=== PATIENT | female | born 1955 | race Caucasian/White ===

== ENCOUNTER 2024-11-16 04:03 | Day surgery (SDC) | payer MEDICARE, OTHER, SELFPAY ==
--- OUTSIDE RECORDS SUMMARY | 2008-05-27 05:29 | XMS_ITS | Continuity of Care Document ---
Author Organization [facility] Address [address] [address] [place] [address] Phone Care Team Providers Care Shank Carrier Name Role Phone Francisco Hernandez MD Unavailable Unavailable Allergies, Adverse Reactions, Alerts Substance Reaction Status Criticality No Known allergies Medications Medication Instructions Dosage Effective Dates (start - stop) Status Comments Carafate 1 gram Tab four times a day - Active Protonix 40 mg Tab One tablet by mouth twice daily - Active METFORMIN HCL (unknown strength) Use as directed Not Available - Active Procedures Procedure Date Ugi Endo; Dx W/wo Collec Specm 08 Advance Directives Directive Yes / No Effective Date File Name No Information Encounters Encounter Description Practice Location Reason(s) For Visit Diagnoses Date Provider Providers Copied on Encounter [facility], [address] [address], [place], [place], [id number], [place] tel:[phone] [facility] Gastric/ant ral Ulcer UnspecPost- op Aftercare NecGastric/ antral Ulcer UnspecPost- op Aftercare Nec David Singh. [address] [facility], [facility] [address], [place], [place], [id number], [place]. tel:[phone] Referring Provider: Khadar Bolaños MD D, [address] [place] [address], [address]. tel:[phone] Family History Family Member Type Diagnosis Age At Onset No Information Payers Payer name Insurance type Covered republican ID Authoriza tion(s) No Information Social History Type Description Quantity Date Captured Comments Sex Female Smoking Status No Information Chief Complaint And Reason For Visit No Information Reason For Referral Reason For Referral No Information History Of Present Illness Encounter Date Complaint History Of Prese nt Illness No Information Functional Status Date Functional Assessmen t No Information Instructions Date Instruction Additional Infor mation No Information Assessments Type Assessment Date No Information Patient Care Teams Name Effective Dates (start - stop) Status Members No Information
--- OUTSIDE RECORDS SUMMARY | 2008-05-27 05:29 | XMS_ITS | Continuity of Care Document ---
Author Organization [facility] Address [address] [address] [place] [address] Phone Care Team Providers Care Brake Linings Coater Name Role Phone Francisco Hernandez MD Unavailable [...] Diagnoses Date Provider Providers Copied on Encounter [facility], [address] [address], [place], [place], [id number], [place] tel:[phone] [facility] Gastric/ant ral Ulcer UnspecPost- op Aftercare NecGastric/ antral Ulcer UnspecPost- op Aftercare Nec David Singh. [address] [facility], [facility] [address], [place], [place], [id number], [place]. tel:[phone] Referring Provider: Khadar Bolaños MD D, [address] [place] [address], [address]. tel:[phone] Family History Family Member Type Diagnosis Age At Onset No Information Payers Payer name Insurance type Covered constitution party ID Authoriza tion(s) No Information Social History [...]
[2024-11-16] VITALS (23 sets, daily range): BP systolic 105–155; BP diastolic 60–78; PULSE 59–81; RESP 12–18; TEMP 36.3–37.2; O2SAT 90–99; BMI 38.6
--- OUTSIDE RECORDS SUMMARY | 2024-11-16 04:06 | XMS_ITS | Clinical Summary ---
Author Organization [facility] Address [address] [place] [id number] Care Team Providers Care Sales And Marketing Associate Name Role Phone Khadar Sandoval Paula Kwan Primary Care Provider [phone] Allergies Active Allergy Reactions Criticality Noted Date Comments Nsaids (Non-Steroidal Anti-I nflammatory Drug) GI Bleeding 05/20/2014 Medications cholecalciferol (VITAMIN D) 1,000 unit capsule Take 1 capsule by mouth once daily. 0 014 Active nystatin powder (MYCOSTATIN) powder As needed 017 Active cyanocobalamin (VITAMIN B-12) 1,000 mcg tablet Take 1 tablet by mouth once daily. 90 tablet 3 019 Active blood-glucose meterIndications:T ype 2 diabetes mellitus without complication, with long-term current use of insulin (HC) Free Style lite meter testing daily Dispense meter, test strips, lancets covered by pt ins. 250.00 NIDDM type II - Test 4 time/day 1 Device 020 Active ACCU-CHEK GUIDE ME GLUCOSE MTR 4 times daily. 020 Active albuterol HFA (PRO-AIR) 90 mcg/actuation inhalerIndications :SOB (shortness of breath) Inhale 1-2 Puffs by mouth every 4 hours if needed. 3 Each 2 020 Active pen needle, diabetic (BD INSULIN PEN NEEDLE UF) 31 gauge x 10/18Indications:T ype 2 diabetes mellitus with retinopathy, with long-term current use of insulin, macular edema presence unspecified, unspecified laterality, unspecified retinopathy severity (HC) Check blood sugars 3-4 times daily and record readings 100 Each 11 Active nitroglycerin (NITROSTAT) 0.4 mg sublingual tabletIndications: CAD in [place] artery Place 1 Tablet (0.4 mg) under the tongue each time if needed for Chest Pain. 25 Tablet 3 05/05/20 21 4:51 PM LOAN PROCESSING SUPERVISOR Active Additional Information Patient taking differently:0.4 mg Sublingual EACH TIME PRN, Chest Pain,as needed, Reported on 10/18/2024 aspirin chewable 81 mg chewable tabletIndications: CAD in [place] artery Chew 1 Tablet (81 mg) by mouth once daily with a meal. 90 Tablet 3 05/05/20 21 4:51 PM LOAN PROCESSING SUPERVISOR 021 Active blood sugar diagnostic (Accu-Chek Guide test strips) stripIndications:d iabetes mellitus Dispense item covered by pt ins. E11.9 NIDDM type II - Test 3 times/day, Reason: insulin use 100 Each 12 022 Active blood sugar diagnostic (Blood Glucose Test) stripIndications:T ype 2 diabetes mellitus with retinopathy, with long-term current use of insulin, macular edema presence unspecified, unspecified laterality, unspecified retinopathy severity (HC) Test 4 times per day. Dx date: 05/2014 Duration of use: 99 months, Dx Code: E11.319 200 Each 2 022 Active nebulizer accessories kitIndications:PEDIATRIC NURSE PRACTITIONER D with chronic bronchitis (HC) For home use. Length of need: 1 year 1 Kit 024 Active citalopram (CELEXA) 20 mg tabletIndications: Moderate major depression (HC) Take 1 Tablet (20 mg) by mouth once daily. 90 Tablet 3 025 Active valsartan (DIOVAN) 40 mg tabletIndications: HTN (hypertension) Take 1 Tablet (40 mg) by mouth once daily. 90 Tablet 3 025 Active clopidogreL 75 mg tabletIndications: CAD in [place] artery Take 1 Tablet (75 mg) by mouth once daily. NO further refills until seen by Cardiology. Call [phone] to schedule 90 Tablet 025 Active semaglutide (Ozempic) 2 mg/dose (8 mg/3 mL) subcutaneous penIndications:Typ e 2 diabetes mellitus with both 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 nonproliferative retinopathy and macular edema, with long-term current use of insulin (HC) Inject 2 mg subcutaneous once weekly. 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 360 Tablet 1 Active rosuvastatin 40 mg tabletIndications: Atherosclerotic heart disease of [place] coronary artery with other forms of angina pectoris Take 1 Tablet (40 mg) by mouth at bedtime. 90 Tablet Active insulin glargine (U-100) (Lantus Solostar U-100 Insulin) 100 unit/mL (3 mL) penIndications:Typ e 2 diabetes mellitus with both 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 nonproliferative retinopathy and macular edema, with long-term current use of insulin (HC) INJECT 23 UNITS UNDER THE SKIN TWICE DAILY (8AM AND 8PM) 30 mL 10 Active fluticasone propion-salmeteroL (Advair Diskus) 500-50 mcg/Dose diskus inhalerIndications :COPD mixed type (HC) Inhale 1 Puff by mouth two times daily. 60 Each 5 Active donepeziL 5 mg tabletIndications: Memory problem Take 1 Tablet (5 mg) by mouth at bedtime. 90 Tablet 3 025 Active albuterol 0.083% (2.5 mg/3 mL) neb solutionIndication s:COPD mixed type (HC) Inhale 3 mL (2.5 mg) via a nebulizer every 4 hours if needed for Shortness Of Breath, Wheezing or Cough. 99 mL 1 025 Active metoprolol succinate 25 mg Sustained-Release tabletIndications: Coronary artery disease, unspecified vessel or lesion type, unspecified whether angina present, unspecified whether [place] or transplanted heart TAKE ONE TABLET BY MOUTH ONCE DAILY 90 Tablet 025 Active albuterol 0.083% (2.5 mg/3 mL) neb solutionIndication s:COPD with chronic bronchitis (HC),Persistent cough for 3 weeks or longer Inhale 3 mL (2.5 mg) via a nebulizer every 4 hours if needed for Shortness Of Breath, Wheezing or Cough. 99 mL 024 2024 Discontinued(R eorder (E-cancel not sent)) fluticasone propion-salmeteroL (Advair Diskus) 500-50 mcg/Dose diskus inhalerIndications :COPD mixed type (HC) Inhale 1 Puff by mouth two times daily. 60 Each 5 024 2024 Discontinued(R eorder (E-cancel not sent)) donepeziL (ARICEPT) 5 mg tabletIndications: Memory problem Take 1 Tablet (5 mg) by mouth at bedtime. 90 Tablet 3 024 2024 Discontinued(R eorder (E-cancel not sent)) rosuvastatin (CRESTOR) 40 mg tabletIndications: CAD, multiple vessel Take 1 Tablet (40 mg) by mouth at bedtime. 90 Tablet 3 024 2024 Discontinued(R eorder (E-cancel not sent)) insulin glargine, U-100, (Lantus Solostar U-100 Insulin) 100 unit/mL (3 mL) penIndications:Typ e 2 diabetes mellitus with retinopathy, with long-term current use of insulin, macular edema presence unspecified, unspecified laterality, unspecified retinopathy severity (HC) INJECT 23 UNITS UNDER THE SKIN TWICE DAILY (8AM AND 8PM) 30 mL 10 024 2024 Discontinued(R eorder (E-cancel not sent)) semaglutide (OZEMPIC) 1 mg/dose (4 mg/3 mL) subcutaneous penIndications:Typ e 2 diabetes mellitus with retinopathy, with long-term current use of insulin, macular edema presence unspecified, unspecified laterality, unspecified retinopathy severity (HC) Inject 1 mg subcutaneous once weekly. 9 mL 1 025 2024 Discontinued(* Medication adjustment) metoprolol succinate (TOPROL XL) 25 mg Sustained-Release tabletIndications: Coronary artery disease, unspecified vessel or lesion type, unspecified whether angina present, unspecified whether [place] or transplanted heart Take 1 Tablet (25 mg) by mouth once daily. 90 Tablet 025 2024 Discontinued metFORMIN (GLUCOPHAGE XR) 500 mg Extended-Release tabletIndications: Type 2 diabetes mellitus with retinopathy, with long-term current use of insulin, macular edema presence unspecified, unspecified laterality, unspecified retinopathy severity (HC) TAKE TWO TABLETS BY MOUTH TWICE A DAY WITH MEALS 240 Tablet 025 2024 Discontinued(R eorder (E-cancel not sent)) Active Problems Problem Noted Date Diagnosed Date COPD mixed type 07/15/2024 Non-proliferative diabetic retinopathy, both eye s 06/12/2024 06/03/2024 Colon polyp 11/14/2023 Overview (11/14/2023): Colonoscopy 11/2023 traditional SSA, long colon recommend CT colon to check the cecum then repeat colonoscopy in 3 years with a colowrap and propofol at [facility] History of Margot-en-Y gastric bypass 10/10/2023 Class 2 severe obesity due t o excess calories with serious comorbidity and body mass index (BMI) of 39.0 to 39.9 in adult 07/18/2023 Assessment & Plan (07/18/2023 10:23 AM LOAN PROCESSING SUPERVISOR): Chart update only. PRIMITIVO Hartmann .................... 07/18/2023 10:23 AM Stage 3a chronic kidney disease 07/18/2023 Assessment & Plan (07/18/2023 10:23 AM LOAN PROCESSING SUPERVISOR): Chart update only. PRIMITIVO Hartmann .................... 07/18/2023 10:23 AM Atherosclerotic heart diseas e of [place] coronary artery with other forms of angina pectoris 08/18/2021 Assessment & Plan (07/18/2023 10:23 AM LOAN PROCESSING SUPERVISOR): Chart update only. PRIMITIVO Hartmann .................... 07/18/2023 10:23 AM S/P drug eluting coronary stent placement 2020 Overview (05/31/2021): Dual antiplatelets through 05/10/22 CAD, multiple vessel 05/05/2021 Overview (05/05/2021): 05/05/21: -95% left circumflex lesion s/p PCI with 3.0 x 24 mm Synergy MAIRA -90% mid RCA lesion s/p PCI with 4.0 x 23 mm Xience Skypoint MAIRA -95% 1st right ANDRE lesion s/p PCI with 2.5 x 28 mm Xience Skypoint MAIRA Type 2 diabetes mellitus wit h retinopathy, with long-term current use of insulin 10/17/2019 Assessment & Plan (07/18/2023 10:23 AM LOAN PROCESSING SUPERVISOR): Chart update only. PRIMITIVO Hartmann .................... 07/18/2023 10:23 AM Forgetfulness 10/17/2019 Chronic cough 10/09/2018 Carpal tunnel syndrome 04/14/2017 Overview (04/02/2018): Overview: Added automatically from request for surgery [id number] Major depressive disorder, single episode, moder ate 04/14/2017 Personal history of other specified conditions 1 06/14/2016 Overview (04/02/2018): Overview: Overview: Gastric Margot-en-Y surgery in 2002 Polycystic ovaries 04/14/2017 Allergic rhinitis due to pollen 12/23/2014 Hyperlipidemia 05/20/2014 Vitamin D deficiency 05/20/2014 Obesity 05/20/2014 Osteoarthrosis, unspecified whether generalized or localized, lower leg 08/21/2007 Dyslipidemia 08/21/2007 Overview (05/05/2021): Simvastatin changed to rosuvastatin 10 mg QD at visit with Dr. Schumacher on 04/22/2021. Recheck fasting lipid profile in 1-2 months. Goal LDL < 70. Unspecified essential hypertension 08/21/2007 Unspecified sleep apnea 08/21/2007 Overview (08/21/2007): Not using CPAP Osteoarthritis 08/21/2007 Rheumatoid arthritis Overview (05/20/2014): Dx by a ''specialist' at [facility] DMARD's: MTX; weaned off when no flares Assessment & Plan (07/18/2023 10:23 AM LOAN PROCESSING SUPERVISOR): Chart update only. PRIMITIVO Hartmann .................... 07/18/2023 10:23 AM PCOD (polycystic ovarian disease) History of morbid obesity Overview (05/20/2014): Gastric Margot-en-Y surgery in 2002 Moderate major depression Resolved Problems Problem Noted Date Diagnosed Date Resolved Date Morbid obesity 02/01/2021 08/26/2021 Type 2 diabetes mellitus without complication 09/05/19 13 08/26/2021 Overview (04/02/2018): Overview: Diabetes mellitus type II Overview: Bilateral foot exam: 05/20/14. Metformin, Levemir, Victoza Eye exam within last 12 months: Yes 12/22/2014 Eye animal care taker: [facility] 12/05/14 labs drawn via [facility]:([facility] orders drawn at outside facility) Total cholesterol 156 Trig 190 hdl 47 ldl 71 HgbA1C 7.3 AST 16 ALT 16 Type II or unspecified type diabetes mellitus without mention of complication, not stated as uncontrolled 08/21/2007 08/26/2021 Overview (12/23/2014): Bilateral foot exam: 05/20/14. Metformin, Levemir, Victoza Eye exam within last 12 months: Yes 12/22/2014 Eye animal care taker: [facility] 12/05/14 labs drawn via [facility]:([facility] orders drawn at outside facility) Total cholesterol 156 Trig 190 hdl 47 ldl 71 HgbA1C 7.3 AST 16 ALT 16 Encounters Date Type Department Care Team Description 11/05/2024 Telephone [facility] [address] [place] [phone] Becky Schumacher MD Appointment (Spoke to patient to reschedule 12/30 [facility] appt due to template change. Pt will have her courtesy car driver call back to reschedule./ Per Bambi W: she is fine to see zuleima or next avaible with kk /) 10/31/2024 Refill [facility] [address] [place] [address] Becky Schumacher MD Refill Request (Metoprolol Succinate) 10/30/2024 Refill [facility] [address] [place] [address] Becky Schumacher MD Refill Request (Metoprolol Succinate) 10/18/2024 2:00 PM CDT Office Visit [facility] [address] [place] [address] Paula Jamil PA Diabetes; Immunization/Injectio n 10/18/2024 Travel 10/12/2024 Refill [facility] [address] [place] [address] Paula Jamil PA Refill Request (Metformin) 09/17/2024 Telephone [facility] [address] [place] [address] Becky Schumacher MD Appointment 09/14/2024 Refill [facility] [address] [place] [phone] Becky Schumacher MD Refill Request (Clopidogrel) from Last 3 Months Immunizations Immunization Administration Dates Next Due COVID-19 VACCINE SPIKEVAX (M ODERNA 50MCG/0.5ML) 12YO+ PFS 10/18/2024,02/19/2024,05/19/2023 COVID-19 vaccine (Moderna 100mcg/0.5mL) PF, MDV 09/03/2020,08/06/2020 COVID-19 vaccine (RoutehappyBio NTech 30mcg/0.3mL) 12YO+ BIVALENT PF, MDV 02/21/2022 COVID-19 vaccine (eWise NTech 30mcg/0.3mL) 12YO+ DEBBY-SUCROSE PF, MDV 10/27/2021 COVID-19 vaccine (RoutehappyBio NTech 30mcg/0.3mL) PF, MDV 05/18/2021 Influenza Virus, Unspecified 03/07/2017 Influenza, IIV4 03/21/2019,03/02/2018 Influenza, Inactivated AIIV4 (Age 65+ Years) Preserv Free 05/19/2023,02/21/2022,03/17/2021,2020 Influenza, Inactivated IIV3 (Age 65+ Years) Preserv Free 02/19/2024 Pneumococcal Conj 20-valent (Prevnar 20) 10/27/2021 Pneumococcal Poly,23-Valent (Pneumovax) 08/10/2016,10/22/2013 Tdap 08/10/2016,08/17/2007 Zoster (Shingrix-RZV, recombinant) 08/30/2018, Family History Medical History Relation Name Comments Diabetes Brother 1 type 2 DM Diabetes Father type 2 Heart Disease Father CAD, [place] in 60' s, Cancer-breast No Family History Relation Name Status Comments Brother 1 Alive Brother 2 Alive Brother 3 Alive Father Mother Sister 1 Alive Sister 2 Alive Sister 3 Alive Social History Tobacco Use Types Packs/Day Years Used Date Smoking Tobacco: Never Smokeless Tobacco: Never Tobacco Cessation:Counseling Given: Not Answered Alcohol Use Standard Drinks/Week Comments Yes 1 (1 standard drink = 0.6 oz pur e alcohol) about one glass on weekends PHQ-2 Answer Date Recorded PHQ-2 TOTAL SCORE 3 10/18/2024 Social Connections Answer Date Recorded Do you often feel lonely or isolated from those around you? 0 10/10/2023 Financial Resource Strain Answer Date R ecorded Difficulty of Paying Living Expenses 3 10/10/2023 Difficulty of Paying Living Expenses Not on file 10/10/2023 Food Insecurity Answer Date Recorded Do you worry your food will run out before you are able to buy more? 1 10/10/2023 Transportation Needs Answer Date Record ed Does lack of transportation keep you from medica l appointments? 1 10/10/2023 Does lack of transportation keep you from work, meetings or getting things that you need? 1 10/10/2023 Housing Stability Answer Date Recorded What is your housing situation today? 1 10/10/2023 Utilities Answer Date Recorded Do you have trouble paying f or utilities (for example, heat, electricity, water, phone)? 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 on file Not on file Not on file Obstetrics History Last Filed Vital Signs Vital Sign Reading Time Taken Comments Blood Pressure 144/76 10/18/2024 2:01 PM CDT Pulse 89 10/18/2024 2:01 PM CDT Temperature 36.5 C (97.7 F) 07/31/2023 8:15 AM LOAN PROCESSING SUPERVISOR Respiratory Rate 12 11/10/2023 11:31 AM CDT Oxygen Saturation 99% 10/18/2024 2:01 PM CDT Inhaled Oxygen Concentration - - Weight 104.3 kg (230 lb) 10/18/2024 2:01 PM CDT Height 163.2 cm (5' 4.25) 10/10/2023 10:25 AM C DT Body Mass Index 39.17 10/10/2023 10:25 AM CDT Plan of Treatment Upcoming Encounters Date Type Department Care Team (Late st Contact Info) Description 11/20/2024 9:30 AM CDT Office Visit [facility] [address] [facility] [address] [place] [address] [place] [address] [facility] [address] [place] [address] 01/20/2025 7:00 AM CDT Office Visit [address] [address] Paula Jamil PA [address] [place] [address] Health Maintenance Due Date Last Done Comments RSV vaccine for adults or (1 - Risk 60-74 years 1-dose series) 2014 BMI (ht and wt on same day) for age 18+ 10/09/2024 10/10/2023, 07/24/2023, 06/20/2022, Additional history exists Medicare Wellness for age 65+ 10/10/2024 10/10/2023, 06/20/2022, 02/01/2021, Additional history exists Mammogram for age 45-75 07/17/2025 07/17/19, 04/21/2023, 02/01/2021, Additional history exists Depression screening for age 12+ 10/18/2025 10/18/2024 Tetanus booster 08/10/2026 08/10/2016, 08/17/2007 Colonoscopy through age 75 11/09/202611/09, 11/10/2023, 11/10/2023, Additional history exists Lipids for age 45-75 10/18/2029 10/18/2024, 05/19/2023, 02/21/2022, Additional history exists Tdap Completed 08/10/2016, 08/17/2007 Zoster (shingles) series for age 50+ Completed 08/30/2018, 11/20/2017 Hepatitis C screening for age 18-79 Completed 03/21/2019 DEXA/DXA scan for age 65+ Completed 01/27/2020 Pneumococcal series for age 50+ Completed 10/27/2021, 08/10/2016, 10/22/2013 Influenza Vaccine Completed 02/19/2024, , 02/21/2022, Additional history exists COVID-19 vaccine series Completed 10/19/19, 02/19/2024, 05/19/2023, Additional history exists Hepatitis B series for 19+ Aged Out N o longer eligible based on patient's age to complete this topic Goals Goal Patient Goal Type Associated Problems Recent Progress Patient-Stated? Author BLOOD PRESSURE - Maintains BP less than 140/90 Blood Pressure No Lazara Pathaklin Alicia, PA Medical Devices Implanted Type Area Retail Coordinator Device Identifier Shelf Expiration Date Model / Serial / Lot Patella Sigma 32mm Oval/[id number] 00 J&Jortho - [id number] Implanted:Qty: 1 on 08/21/2007 at [facility] Total Joint Right: Knee [employer] 04/05/2012 96# / / [id number] Patella Sigma 32mm Oval/[id number] 00 J&Jortho - [id number] Implanted:Qty: 1 on 08/21/2007 at [facility] Total Joint Left: Knee [employer] 06/05/2012 96-0100# / / [id number] Cmnt Bone Palacos R - [id number] Implanted:Qty: 1 on 08/21/2007 at [facility] Right: Knee [employer] 10/04/2011 1112-140-0 1# / / [id number] Cmnt Bone Palacos R - [id number] Implanted:Qty: 1 on 08/21/2007 at [facility] Left: Knee [employer] 1112-140-0 1# / / [id number] Ty Tib Mbt Adonis Keel Sz 2.76736-77-066 - [id number] Implanted:Qty: 1 on 08/21/2007 at [facility] Right: Knee [employer] 03/05/2012 5# / / [id number] Insert Tib Rp Cvd Sz 2.5 10mm Depuy - [id number] Implanted:Qty: 1 on 08/21/2007 at [facility] Right: Knee [employer] 04/05/2012# / / [id number] Cmpnt Fem Cruciate Pors 2.5 [id number] - [id number] Implanted:Qty: 1 on 08/21/2007 at [facility] Right: Knee [employer] 07/06/2017 96-37# / / [id number] Compnt Fem Pors C/R Lt Sz 2.5 96-27 - [id number] Implanted:Qty: 1 on 08/21/2007 at [facility] Left: Knee [employer]in [employer] 07/06/2017-002# / / [id number] Insert Tib Rp Cvd Sz 2.5 10mm Depuy - [id number] Implanted:Qty: 1 on 08/21/2007 at [facility] Left: Knee [employer] 01/03/2010# / / [id number] Ty Tib Mbt Adonis Keel Sz 2.67050-80-410 - [id number] Implanted:Qty: 1 on 08/21/2007 at [facility] Left: Knee [employer] 05/05/2012 5# / / [id number] Cmnt Bone Palacos R - [id number] Implanted:Qty: 1 on 08/21/2007 at [facility] Left: Knee [employer] 10/04/2011 1112-140-0 1# / / [id number] Procedures Procedure Name Priority Date/Time Associated Diagnosis Comments LIPID PANEL W REFLEX MEASURED LDL Routine 10/18/2024 1:59 PM CDT Atherosclerotic heart disease of [place] coronary artery with other forms of angina pectoris BASIC METABOLIC PANEL Routine 10/18/2024 1:59 PM CDT Primary hypertension VITAMIN B12 Routine 10/18/2024 1:59 PM CDT History of Margot-en-Y gastric bypass VITAMIN D 25 (DEFICIENCY) Routine 10/18/2024 1:59 PM CDT Vitamin D deficiency FERRITIN Routine 10/18/2024 1:59 PM CDT History of Margot-en-Y gastric bypass HEMOGLOBIN A1C MONITORING (POCT) Routine 10/18/2024 1:58 PM CDT Type 2 diabetes mellitus with both 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 nonproliferative retinopathy and macular edema, with long-term current use of insulin (HC) XR MAMMO BILAT SCREENING Routine 07/17/2024 9:54 AM LOAN PROCESSING SUPERVISOR Visit for screening mammogram COLONOSCOPY 11/10/2023 9:46 AM CDT XR DXA BONE DENSITY 2 SITES AXIAL Routine 01/27/2020 2:00 PM CDT Menopause ANTI HCV Routine 03/21/2019 9:04 AM CDT Need for hepatitis C screening test from Last 3 Months or Most Recently Relevant to Health Maintenance Results * (ABNORMAL) LIPID PANEL W REFLEX MEASURED LDL (10/18/2024 1:59 PM CDT) Pathologist [facility] CHOLESTEROL, TOTAL 113 <200 mg/dL [facility] HDL CHOLESTEROL 50 > OR = 50 mg/dL [facility] TRIGLYCERIDES 166(H) <150 mg/dL [facility] LDL-CHOLESTEROL 39 mg/dL (calc) [facility] Comment: Reference range: <100 Desirable range <100 mg/dL for primary prevention; <70 mg/dL for patients with CHD or diabetic patients with > or = 2 CHD risk factors. LDL-C is now calculated using the Raheel-Husain calculation, which is a validated novel method providing better accuracy than the Friedewald equation in the estimation of LDL-C. Raheel SS et al. TISHA. 2013;310(19): 5805-5919 (http://education.[employer]/faq/COC410) CHOL/HDLC RATIO 2.3 <5.0 (calc) [facility] NON HDL CHOLESTEROL 63 <130 mg/dL (calc) [facility] Comment: For patients with diabetes plus 1 major ASCVD risk factor, treating to a non-HDL-C goal of <100 mg/dL (LDL-C of <70 mg/dL) is considered a therapeutic option. Blood BLOOD SPECIMEN / Unknown 10/18/2024 1:59 PM CDT 10/18/2024 1:59 PM CDT us Paula LANGFORD CHEMISTRY Final Res ult [facility] [address] [place] [address], [facility] [address] [place] [address] * VITAMIN D 25 (DEFICIENCY) (10/18/2024 1:59 PM CDT) VITAMIN D,25-OH,TOTAL,IA 39 30 - 100 ng/mL [facility] Comment: Vitamin D Status 25-OH Vitamin D: Deficiency: <20 ng/mL Insufficiency: 20 - 29 ng/mL Optimal: > or = 30 ng/mL For 25-OH Vitamin D testing on patients on D2-supplementation and patients for whom quantitation of D2 and D3 fractions is required, the QuestAssureD(TM) 25-OH VIT D, (D2,D3), LC/MS/MS is recommended: order code 31319 (patients >2yrs). See Note 1 Note 1 For additional information, please refer to http://education.[employer]/faq/NFY412 (This link is being provided for informational/ educational purposes only.) Blood BLOOD SPECIMEN / Unknown 10/18/2024 1:59 PM CDT 10/18/2024 1:59 PM CDT us Paula LANGFORD SEND OUTS Final Res ult [facility] [address] [place] [address], [facility] [address] [place] [address] * FERRITIN (10/18/2024 1:59 PM CDT) FERRITIN 76 16 - 288 ng/mL [facility] Blood BLOOD SPECIMEN / Unknown 10/18/2024 1:59 PM CDT 10/18/2024 1:59 PM CDT us Paula LANGFORD CHEMISTRY Final Res ult [facility] [address] [place] [address], [facility] [address] [place] [address] * (ABNORMAL) VITAMIN B12 (10/18/2024 1:59 PM CDT) Pathologist [facility] VITAMIN B12 >2000(H) 200 - 1100 pg/mL [facility] Blood BLOOD SPECIMEN / Unknown 10/18/2024 1:59 PM CDT 10/18/2024 1:59 PM CDT Paula LANGFORD CHEMISTRY Final Res ult [facility] [address] [place] [address], [facility] [address] [place] [address] * (ABNORMAL) BASIC METABOLIC PANEL (10/18/2024 1:59 PM CDT) Pathologist [facility] GLUCOSE 138(H) 65 - 99 mg/dL [facility] Comment: Fasting reference interval For someone without known diabetes, a glucose value >125 mg/dL indicates that they may have diabetes and this should be confirmed with a follow-up test. UREA NITROGEN (BUN) 19 7 - 25 mg/dL [facility] CREATININE 0.81 0.60 - 1.00 mg/dL [facility] EGFR 78 > OR = 60 mL/min/1. 73m2 [facility] BUN/CREATININE RATIO SEE NOTE: 6 - 22 (calc) [facility] Comment: Not Reported: BUN and Creatinine are within reference range. SODIUM 139 135 - 146 mmol/L [facility] POTASSIUM 4.7 3.5 - 5.3 mmol/L [facility] CHLORIDE 105 98 - 110 mmol/L [facility] CARBON DIOXIDE 26 20 - 32 mmol/L [facility] ELECTROLYTE BALANCE 8 7 - 17 mmol/L (calc) [facility] CALCIUM 9.6 8.6 - 10.4 mg/dL [facility] Blood BLOOD SPECIMEN / Unknown 10/18/2024 1:59 PM CDT 10/18/2024 1:59 PM CDT Paula LANGFORD CHEMISTRY Final Res ult Performing Organization Address [facility] Co de Phone Number [facility] [address] [place] [address], [place] [phone] [facility] [address] [place] [address] * (ABNORMAL) POCT Hemoglobin A1C Monitoring (10/18/2024 1:58 PM CDT) POC HEMOGLOBIN A1C 7.4(H) <6.0 % OF TOTAL HGB [facility] Comment: Any point of care results exhibiting inconsistency with the patient's clinical status should be repeated using a different testing method. Blood BLOOD SPECIMEN / Unknown 10/18/2024 1:58 PM CDT 10/18/2024 1:59 PM CDT us Paula LANGFORD CHEMISTRY Final Res ult Performing Organization Address [facility] Co de Phone Number [facility] [address] [place] [address], [facility] [address] [place] [address] * XR MAMMO BILAT SCREENING (07/17/2024 9:54 AM LOAN PROCESSING SUPERVISOR) Anatomical Region Laterality Modality BREASTS, Breast Left, Breast Right Bilateral Mammography Impressions 07/18/2024 2:53 PM LOAN PROCESSING SUPERVISOR There is no radiographic evidence for malignancy. Recommend annual mammograms. MAMMOGRAM ASSESSMENT: ACR 1 Negative PATIENTS: You will also receive a letter with your examination results in an easy to read format. If you have questions about your results, please contact your referring provider. Narrative 07/18/2024 2:53 PM LOAN PROCESSING SUPERVISOR For Patients: As a result of the Century Cures Act, medical imaging exams and procedure reports are released immediately into your electronic medical record. You may view this report before your referring provider. If you have questions, please contact your health care provider. XR MAMMO BILAT SCREENING [[id number]] CLINICAL HISTORY: This is an asymptomatic 69 y.o. patient. INDICATION FOR EXAM: Mammogram Screening. TECHNIQUE: CC & MLO views were obtained. This study was evaluated with the assistance of Computer-Aided Detection. COMPARISON FILM: Yes 04/21/23 [facility] 02/01/21 [facility] FINDINGS: The breasts are almost entirely fatty. There are no dominant masses, suspicious micro calcifications or areas of architectural distortion. us Paula LANGFORD MAMMO Final Res ult * COLONOSCOPY (11/10/2023 9:46 AM CDT) 11/10/2023 9:46 AM CDT Narrative Transcriptions Raheel Dash MD - 11/10/2023 12:39 PM CDT Patient Name: Tiara Sandoval Procedure Date: 11/10/2023 Gender: Female Date of : 1955 Admit Type: Outpatient Procedure: Colonoscopy Proceduralist: Raheel Dash MD , Shirin Zurita (Nurse), Nancie Woody RN (Nurse) Referring MD: Paula Jamil Indications/Pre-Op Diagnosis: Screening for colorectal malignant neoplasm, Last colonoscopy: date unknown (unable to locate last colonoscopy report) Medications: Fentanyl 100 micrograms IV, Midazolam 4 mgIV, The level of sedation administered wasmoderate Procedure Description: The patient had risks, benefits and alternatives explained to andgave informed consent. The patient had a stable cardiopulmonary status and judged an adequate candidate for conscious sedation. The endoscope [id number] was passed through the anus with the intention of advancing to the cecum. The scope was advanced to the ascending colon before the procedure was aborted. Medications were given. The ileocecal valve and the rectum were photographed. Complications: No immediate complications. Estimated Blood Loss & Specimen: Estimated blood loss: none. Specimen collected - Yes and sent to Laboratory Findings: The perianal and digital rectal examinations were normal. The colon (entire examined portion) was significantly redundant. A 4 mm polyp was found in the sigmoid colon. The polyp waspedunculated. The polyp was removed with a cold snare. Resection and retrieval were complete. A small amount of stool was found in the entire colon, interferingwith visualization. Lavage of the area was performed using a large amountof sterile water, resulting in clearance with fair visualization. The exam was otherwise without abnormality. Impressions/Post-Op Diagnosis: - Redundant colon. - One 4 mm polyp in the sigmoid colon, removed with a cold snare. Resected and retrieved. - Stool in the entire examined colon. - The examination was otherwise normal. Recommendation: - Patient has a contact number available for emergencies. The signsand symptoms of potential delayed complications were discussed with the patient. Return to normal activities tomorrow. Written discharge instructions were provided to the patient. - Resume previous diet. - Continue present medications. - Await pathology results. - Perform a virtual colonoscopy in 1 month. Moderate Sedation: A time out was performed before the procedure. Moderate (conscious) sedation was administered by the endoscopy nurse and supervised bythe endoscopist. The following parameters were monitored: oxygensaturation, heart rate, blood pressure, EKG, CO2, respiratory rate, adequacy of pulmonary ventilation and reponse to care. Please refer to the patient's medical record flowsheets and nursing notes for moderate sedation details. Total physician intraservice time was 32 minutes. Raheel Dash MD 11/10/2023 12:39:07 PM This report has been signed electronically. Note Initiated On: 11/10/2023 9:46 AM Procedure Code(s): --- Professional --- 32914, 52, Colonoscopy, flexible; withremoval of tumor(s), polyp(s), or other lesion(s) by snare technique Diagnosis Code(s): --- Professional --- Z12.11, Encounter for screening formalignant neoplasm of colon D12.5, Benign neoplasm of sigmoid colon Q43.8, Other specified congenitalmalformations of intestine CPT copyright 2022 [employer]. All rights reserved. The codes documented in this report are preliminary and upon supervisor production reviewmay be revised to meet current compliance requirements. Scope In: 10:31:32 AM Scope Out: 11:01:45 AM Raheel Dash MD PROCEDURE ORD Final Res ult * (ABNORMAL) XR DXA BONE DENSITY 2 SITES AXIAL [85196.1] (01/27/2020 2:00 PM CDT) Anatomical Region Laterality Modality Spine, HIPS, HIPL, HIPR Other Narrative 02/13/2020 11:40 AM CDT Please see scanned document for results of this study. Amanda LANGFROD DEXA Final Result * ANTI HCV (03/21/2019 9:04 AM CDT) HEPATITIS C ANTIBODY Non-React truong Non-React truong 03/21/2019 3:18 PM CDT [facility] Comment:Antibodies to HCV no t detected; does not exclude the possibility of exposure to HCV. Blood BLOOD SPECIMEN / Unknown Venipuncture / Unknown 03/21/2019 9:04 AM CDT 03/21/2019 9:04 AM CDT us Amanda LANGFORD SEND OUTS Final Result [facility] [address] [place] [address], [place] from Last 3 Months or Most Recently Relevant to Health Maintenance Insurance MEDICARE PART A HB ONLY [employer] ONLY MEDICARE PART B HB ONLY MEDICA PRIME SOLUTION HB * Guarantor: TIARA SANDOVAL Account Type Relation to Patient Date of Phone Billing Address Personal/Family [address] [place] [address] Advance Directives Documents on File Type Date Recorded Patient Park Worker Expl anation Healthcare Directive 05/09/2019 019 * Full Code (Latest Code Status on File) Date Activated Date Inactivated Comments 07/31/2023 9:47 AM 07/31/2023 4:13 PM Question Answer Comments Code Status Discussion: Reviewed Preferences * Full Code Date Activated Date Inactivated Comments 05/20/2021 5:42 PM 05/20/2021 11:17 PM Question Answer Comments Code Status Discussion: Reviewed Preferences * Full Code Date Activated Date Inactivated Comments 05/05/2021 9:32 AM 05/05/2021 10:49 PM Question Answer Comments Code Status Discussion: Reviewed Preferences * Full Code Date Activated Date Inactivated Comments 08/21/2007 11:49 AM 08/24/2007 3:32 PM * Full Code Date Activated Date Inactivated Comments 08/21/2007 7:55 AM 08/21/2007 11:49 AM Care Teams Sales And Marketing Associate Relationship Specialty Start Date End Date Paula Jamil PA [address] [place] [address] PCP - General Physician Buffing Wheel Former [employer] 01/31/22 Khadar Sandoval Nurse Practitioner 05/20/14
[2024-11-16 04:32] LABS: Appearance Urine Cloudy (Clear); Bilirubin Urine Negative (Negative); Blood Urine 1+ (Negative); Color Urine Yellow (Yellow); Glucose Urine Negative (Negative); Ketones Urine Trace (Negative); Leukocyte Esterase Urine Trace (Negative); Nitrite Urine Positive (Negative); Protein Urine 3+ (Negative); Specific Gravity Urine 1.025 (1.000-1.030); pH Urine 6.5 (5.0-8.5)
--- NOTE | 2024-11-16 04:34 | ED.GENADULT ---
HPI - General Adult General Chief complaint: Abdominal Pain Stated complaint: right side abdominal pain Time Seen by Provider: 11/16/24 04:34 History of Present Illness HPI narrative: pain in R upper abd. pain does not radiate, pain started last night, had some nausea last night but none now. no surgical hx in abd. no hx of similar episodes in the past. patient denies any constipation or diarrhea. pain is constant and dull. has not tried OTC meds. alexandrianet reports hx of DM type 2, 6 heart stents in 2020 and bleeding peptic ulcers in 2008 . 69-year-old woman presenting to the emergency department History urinary tract infections ?oh yeah?. No dysuria or frequency though. Urine has been dark smelly she says. Related Data Home Medications ?Medication ?Instructions ?Recorded ?Confirmed albuterol sulfate 2.5 mg/3 mL 1 Q4H PRN wheezing 11/16/24 (0.083 %) solution for nebulization citalopram 20 mg tablet 20 mg PO DAILY 11/16/24 11/16/24 clopidogrel 75 mg tablet 75 mg PO DAILY 11/16/24 11/16/24 donepezil 5 mg tablet 5 mg PO QPM 11/16/24 11/16/24 fluticasone 500 mcg-salmeterol 50 inhalation 11/16/24 mcg/dose blistr powdr for inhalation insulin glargine 100 unit/mL (3 23 unit subcut 11/16/24 mL) subcutaneous pen (Lantus Solostar U-100 Insulin) metformin 500 mg tablet,extended 1,000 mg PO BID 11/16/24 11/16/24 release 24 hr metoprolol succinate 25 mg 25 mg PO DAILY 11/16/24 11/16/24 tablet,extended release 24 hr rosuvastatin 40 mg tablet 40 mg PO QPM 11/16/24 11/16/24 semaglutide 0.25 mg or 0.5 mg (2 0.5 mg subcut 11/16/24 mg/3 mL) subcutaneous pen injector (Ozempic) valsartan 40 mg tablet 40 mg PO DAILY 11/16/24 11/16/24 Allergies Allergy/AdvReac Type Severity Reaction Status Date / Time NSAIDS (Non-Steroidal AdvReac Intermediate gi bleeding Verified 11/16/24 04:07 Anti-Inflamma PFSH PFS Medical History (Updated 11/16/24 @ 04:14 by Yolie Mccain, RN) Rheumatoid arthritis ?M06.9 - Rheumatoid arthritis, unspecified (ICD-10) Polycystic ovaries ?E28.2 - Polycystic ovarian syndrome (ICD-10) Major depression ?F32.9 - Major depressive disorder, single episode, unspecified (ICD-10) CAD, multiple vessel ?I25.10 - Atherosclerotic heart disease of [place] coronary artery without angina pectoris (ICD-10) Atherosclerotic heart disease of [place] coronary artery with other forms of angina pectoris ?I25.118 - Atherosclerotic heart disease of [place] coronary artery with other forms of angina pectoris (ICD-10) Stage 3a chronic kidney disease ?N18.31 - Chronic kidney disease, stage 3a (ICD-10) COPD mixed type ?J44.9 - Chronic obstructive pulmonary disease, unspecified (ICD-10) Sleep apnea ?G47.30 - Sleep apnea, unspecified (ICD-10) HTN (hypertension) ?I10 - Essential (primary) hypertension (ICD-10) Type II diabetes mellitus ?E11.9 - Type 2 diabetes mellitus without complications (ICD-10) Insomnia ?G47.00 - Insomnia, unspecified (ICD-10) Surgical History (Updated 11/16/24 @ 04:14 by Yolie Mccain, JAMEY) S/P drug eluting coronary stent placement ?Z95.5 - Presence of coronary angioplasty implant and graft (ICD-10) History of Margot-en-Y gastric bypass ?Z98.84 - Bariatric surgery status (ICD-10) Social History Smoking Status: Never smoker Do you use any of these nicotine containing products: None How often do you have a drink containing alcohol: never AUDIT-C Alcohol total score: 0 Non-prescribed substance use: denies use Exam Narrative: Exam Narrative: Sore to palpation right abdomen. Mild. Const: Vital Signs, click to edit/add: Vital Signs - 24 hr 11/16/24 04:08 Temperature 98.1 F Pulse Rate [Pulse Oximeter] 71 Respiratory Rate 18 Blood Pressure [Ri ght Upper Arm] 150/76 H Pulse Oximetry 96 Oxygen Delivery Me thod Room Air Course Vital Signs Vital signs: Initial Vital Signs Temperature 98.1 F 11/16/24 04:08 Temperature Source Temporal Artery Scan 11/16/24 04:08 Pulse Rate 71 11/16/24 04:08 Respiratory Rate 18 06/14/25 04:08 Blood Pressure 150/76 H 11/16/24 04:08 Blood Pressure Mean 100 11/16/24 04:08 Blood Pressure Position Semi-Fowlers 11/16/24 04:08 Pulse Oximetry 96 11/16/24 04:08 Oxygen Delivery Method Room Air 11/16/24 04:08 Vital Signs Temperature 98.1 F 11/16/24 04:08 Pulse Rate 71 11/16/24 04:08 Respiratory Rate 18 11/16/24 04:08 Blood Pressure 150/76 H 11/16/24 04:08 Pulse Oximetry 96 11/16/24 04:08 Oxygen Delivery Method Room Air 11/16/24 04:08 Temperature 98.1 F 11/16/24 04:08 Pulse Rate 71 11/16/24 04:08 Respiratory Rate 18 11/16/24 04:08 Blood Pressure 150/76 H 11/16/24 04:08 Pulse Oximetry 96 11/16/24 04:08 Oxygen Delivery Method Room Air 11/16/24 04:08 Medical Decision Making Lab Data Labs: Lab Results 11/16/24 Range/Units 04:00 Urine Color Yellow (Yellow) Urine Appearance Cloudy A (Clear) Urine pH 6.5 (5.0-8.5) Ur Specific [place] 1.025 (1.000-1.030) Urine Protein 3+ A (Negative) Urine Glucose (UA) Negative (Negative) Urine Ketones Trace A (Negative) Urine Blood 1+ A (Negative) Urine Nitrite Positive A (Negative) Urine Bilirubin Negative (Negative) Urine Urobilinogen 1.0 (0.2-1.0) Ur Leukocyte Esterase Trace A (Negative) Discharge Plan Discharge Prescriptions: No Action donepezil 5 mg tablet 5 mg PO QPM albuterol sulfate 2.5 mg /3 mL (0.083 %) solution for nebulization 1 Q4H PRN (Reason: wheezing) clopidogrel 75 mg tablet 75 mg PO DAILY citalopram 20 mg tablet 20 mg PO DAILY fluticasone propion-salmeterol 500-50 mcg/dose blister with device INHALATION Patient Comments: [NO ORIGINAL SIG] metoprolol succinate 25 mg tablet extended release 24 hr 25 mg PO DAILY metformin 500 mg tablet extended release 24 hr 1,000 mg PO BID valsartan 40 mg tablet 40 mg PO DAILY rosuvastatin 40 mg tablet 40 mg PO QPM insulin glargine [Lantus Solostar U-100 Insulin] 100 unit/mL (3 mL) insulin pen 23 unit subcut Ozempic 0.25 mg or 0.5 mg (2 mg/3 mL) pen injector 0.5 mg subcut Follow Up/Referrals: Amanda Pathak PA-C [Primary Care Provider, Family Practice]
[2024-11-16 04:57] LABS: Bacteria Urine Many; RBC Urine 0-2 (0-2); Squamous Epithelial Cell Urine Few (None-Few)
[2024-11-16 05:36] LABS: Basophils Percent Auto 0.4 % (0.0-3.0); Eosinophils Percent Auto 0.4 % (0.0-7.0); Hematocrit 41.1 % (33.0-51.0); Hemoglobin* 13.2 gm/dL (12.0-16.0); Immature Granulocytes Pct Auto 0.1 %; Lymphocytes Percent Auto 14.1 % (20-44); Mean Corpuscular HGB Conc 32 gm/dL (32-36); Mean Corpuscular Hemoglobin 30 pg (26-34); Mean Corpuscular Volume 92 fL (80-100); Monocytes Percent Auto 6.5 % (0.0-11.0); Neutrophils Percent Auto 78.5 % (42.0-72.0); Platelet Count* 289 K/uL (140-440); RDW Coefficient of Variation % 12.8 % (11.5-15.5); Red Blood Count 4.48 m/uL (4.00-5.20); White Blood Count* 13.17 K/uL (4.50-11.00)
[2024-11-16] MEDS: KETOROLAC 15 MG/ML inj IVP (05:37)
[2024-11-16 05:38] LABS: Slide Review Reflex No
[2024-11-16 05:48] LABS: Albumin* 4.2 g/dL (3.3-5.0); Chloride* 102 mmol/L (96-114); Sodium* 136 mmol/L (135-149)
[2024-11-16 05:49] LABS: Potassium* 4.7 mmol/L (3.6-5.1)
[2024-11-16 05:51] LABS: Blood Urea Nitrogen* 21 mg/dL (7-30); Estimated Glomerular Filt Rate 61 ml/min
[2024-11-16 05:52] LABS: Alanine Aminotransferase* 15 U/L (4-35); Alkaline Phosphatase* 77 U/L (40-150); Anion Gap 8 mEq/L (7-15); Aspartate Amino Transferase* 23 U/L (12-35); Bilirubin Direct* 0.2 mg/dL (0.0-0.5); Bilirubin Total* 0.7 mg/dL (0.1-1.5); Calcium* 9.4 mg/dL (8.4-10.6); Carbon Dioxide* 26 mmol/L (20-32); Glucose* 163 mg/dL (60-115); Lipase* 39 U/L (23-300)
[2024-11-16 05:54] LABS: C Reactive Protein* 1.2 mg/dL (0.5-1.0)
--- NOTE | 2024-11-16 06:23 | ED.GENADULT ---
HPI - General Adult General Chief complaint: Abdominal Pain Stated complaint: right side abdominal pain Time Seen by Provider: 11/16/24 04:34 History of Present Illness HPI narrative: pain in R upper abd. pain does not radiate, pain started last night, had some nausea last night but none now. no surgical hx in abd. no hx of similar episodes in the past. patient denies any constipation or diarrhea. pain is constant and dull. has not tried OTC meds. alexandriapradip reports hx of DM type 2, 6 heart stents in 2020 and bleeding peptic ulcers in 2008 . 69-year-old woman presenting to the emergency department with complaint of 2 days now of right sided abdominal pain. It has been persistent. Not sharp maybe more dull. She denies that she is constipated. No fever. No chest pain. No shortness of breath. Was nauseated last night but not so much now. Does not feel that she needs anything for pain. History of diabetes and coronary artery disease with history of stenting. History also gastric bypass Notes history of recurrent urinary tract infections ?oh yeah? and without dysuria. Related Data Home Medications ?Medication ?Instructions ?Recorded ?Confirmed albuterol sulfate 2.5 mg/3 mL 1 Q4H PRN wheezing 11/16/24 (0.083 %) solution for nebulization citalopram 20 mg tablet 20 mg PO DAILY 11/16/24 11/16/24 clopidogrel 75 mg tablet 75 mg PO DAILY 11/16/24 11/16/24 donepezil 5 mg tablet 5 mg PO QPM 11/16/24 11/16/24 fluticasone 500 mcg-salmeterol 50 inhalation 11/16/24 mcg/dose blistr powdr for inhalation insulin glargine 100 unit/mL (3 23 unit subcut 11/16/24 mL) subcutaneous pen (Lantus Solostar U-100 Insulin) metformin 500 mg tablet,extended 1,000 mg PO BID 11/16/24 11/16/24 release 24 hr metoprolol succinate 25 mg 25 mg PO DAILY 11/16/24 11/16/24 tablet,extended release 24 hr rosuvastatin 40 mg tablet 40 mg PO QPM 11/16/24 11/16/24 semaglutide 0.25 mg or 0.5 mg (2 0.5 mg subcut 06/14/25 mg/3 mL) subcutaneous pen injector (APTwater) valsartan 40 mg tablet 40 mg PO DAILY 11/16/24 11/16/24 Allergies Allergy/AdvReac Type Severity Reaction Status Date / Time No Known Drug Allergies Allergy Verified 11/16/24 07:43 Review of Systems Status of ROS: Reports: 6 or more systems reviewed and unremarkable except as noted in History and below PFSH [facility] Medical History Rheumatoid arthritis ?M06.9 - Rheumatoid arthritis, unspecified (ICD-10) Polycystic ovaries ?E28.2 - Polycystic ovarian syndrome (ICD-10) Major depression ?F32.9 - Major depressive disorder, single episode, unspecified (ICD-10) CAD, multiple vessel ?I25.10 - Atherosclerotic heart disease of [place] coronary artery without angina pectoris (ICD-10) Atherosclerotic heart disease of [place] coronary artery with other forms of angina pectoris ?I25.118 - Atherosclerotic heart disease of [place] coronary artery with other forms of angina pectoris (ICD-10) Stage 3a chronic kidney disease ?N18.31 - Chronic kidney disease, stage 3a (ICD-10) COPD mixed type ?J44.9 - Chronic obstructive pulmonary disease, unspecified (ICD-10) Sleep apnea ?G47.30 - Sleep apnea, unspecified (ICD-10) HTN (hypertension) ?I10 - Essential (primary) hypertension (ICD-10) Type II diabetes mellitus ?E11.9 - Type 2 diabetes mellitus without complications (ICD-10) Insomnia ?G47.00 - Insomnia, unspecified (ICD-10) Surgical History S/P drug eluting coronary stent placement ?Z95.5 - Presence of coronary angioplasty implant and graft (ICD-10) History of Margot-en-Y gastric bypass ?Z98.84 - Bariatric surgery status (ICD-10) Social History Smoking Status: Never smoker Do you use any of these nicotine containing products: None How often do you have a drink containing alcohol: never AUDIT-C Alcohol total score: 0 Non-prescribed substance use: denies use Exam Narrative: Exam Narrative: Pleasant. No distress. Long eyelashes. Skin is warm and dry. Extremities are well perfused. Breathing easily. Transitioning without notable difficulty. Abdomen is overweight soft and tender without Denny's in the right upper abdomen and the right mid abdomen. Not with flank tenderness. Heart in regular rate and rhythm. Const: Vital Signs, click to edit/add: Vital Signs - 24 hr 11/16/24 04:08 11/16/24 05:41 11/16/24 07:54 Temperature 98.1 F Pulse Rate [Pulse Oximeter] 71 72 74 Respiratory Rate 18 16 16 Blood Pressure [Ri ght Upper Arm] 150/76 H 127/72 105/60 Pulse Oximetry 96 95 96 Oxygen Delivery Me thod Room Air Room Air Room Air Documenting provider has reviewed patient's vital signs: yes Course Vital Signs Vital signs: Initial Vital Signs Temperature 98.1 F 11/16/24 04:08 Temperature Source Temporal Artery Scan 11/16/24 04:08 Pulse Rate 71 11/16/24 04:08 Respiratory Rate 18 11/16/24 04:08 Blood Pressure 150/76 H 11/16/24 04:08 Blood Pressure Mean 100 11/16/24 04:08 Blood Pressure Position Semi-Fowlers 11/16/24 04:08 Pulse Oximetry 96 11/16/24 04:08 Oxygen Delivery Method Room Air 11/16/24 04:08 Vital Signs Temperature 98.1 F 11/16/24 04:08 Pulse Rate 71 11/16/24 04:08 Respiratory Rate 18 11/16/24 04:08 Blood Pressure 150/76 H 11/16/24 04:08 Pulse Oximetry 96 11/16/24 04:08 Oxygen Delivery Method Room Air 11/16/24 04:08 Temperature 98.1 F 11/16/24 04:08 Pulse Rate 74 11/16/24 07:54 Respiratory Rate 16 11/16/24 07:54 Blood Pressure 105/60 11/16/24 07:54 Pulse Oximetry 96 11/16/24 07:54 Oxygen Delivery Method Room Air 11/16/24 07:54 Medications Administered Medications: Generic Name Dose Route Start Last Admin Trade Name Freq PRN Reason Stop Dose Admin Sodium Chloride 1,000 mls @ 1,000 mls/hr 11/16/24 07:40 11/16/24 07:47 0.9 % Sodium Chloride 1000 Ml IV 11/16/24 08:39 1,000 mls/hr .Q1H ONE Administration Discontinued Medications Generic Name Dose Route Start Last Admin Trade Name Freq PRN Reason Stop Dose Admin Ketorolac Tromethamine 15 mg 11/16/24 05:30 11/16/24 05:37 Ketorolac 15 Mg/Ml Inj IVP 11/16/24 05:31 15 mg ONCE ONE Administration Medical Decision Making MDM Narrative Medical decision making narrative: Would collect urine to check for UTI. Could be developing pyelo. Subsequently of check labs for evidence of gallbladder disease/cholecystitis/liver inflammation. Again denies constipation. I do not think this is referring from the chest or epigastrium really to suggest cardiac etiology. Urinalysis is with nitrite but on microscopic does not seem to be particularly infected. On reexamination does seem more tender in the right upper quadrant though still with negative Denny's. She would like something for pain. Ordered for ketorolac. Labs were return with mildly elevated white count and CRP of 1.2. I think can do non-contrasted scan of the abdomen given habitus. CT scan independently reviewed by me of the abdomen and pelvis notable for rather enlarged gallbladder looks to have somewhat thickened wall and there are gallstones within. Have requested ultrasound for further characterization. Tiara has been resting comfortably in the emergency department. Radiology over-read of imaging below INDICATION: Right upper quadrant pain, nitrite positive urine. COMPARISON: 11/09/2020 TECHNIQUE: CT of the abdomen and pelvis without intravenous contrast. Multiplanar axial, coronal, and sagittal reformats were reconstructed. Contrast: None. FINDINGS: Lung bases: Coarsely calcified right lower hilar lymph node. Heavy coronary artery calcifications. Liver: Scattered hepatic granulomas. Gallbladder and bile ducts: The gallbladder is distended and measures almost 14 centimeters in length and has a diameter of 5.7 cm. There are several small hyperdense gallstones at the gallbladder neck. There is circumferential pericholecystic edema and moderate wall thickening. No bile duct dilation. Pancreas: Normal. Spleen: Calcified splenic granulomas. Adrenal glands: Normal. Kidneys: Normal renal size and position. No contour deforming renal cyst or mass. No calculi. No urinary tract dilation. Urinary bladder: Normal. Pelvis: No cyst or mass. Vessels: Atherosclerosis. No aortic aneurysm. Bowel: Postop gastric bypass. No dilated bowel. No inflamed appearing bowel. Normal appendix. Mild stool burden. Lymph nodes: There are some coarse calcifications in a periportal lymph node consistent with old granulomatous infection. No enlarged or worrisome lymph nodes. Peritoneum: No ascites or free air. Abdominal wall: Diastasis recti. No bowel containing hernia. Bones: No fractures. Asymmetric sclerosis in the parasymphyseal right pubic bone is new compared to prior. There are some heterotopic ossifications and some periarticular erosions that indicate this is probably degenerative in nature/osteitis pubis. Multilevel disc and facet degeneration. IMPRESSION: Calculus cholecystitis. Please note that all CT scans at this facility use dose modulation, iterative reconstruction, and/or weight-based dosing when appropriate to reduce radiation dose to as low as reasonably achievable. Dictated by Verna David MD @ 11/16/2024 7:16:32 AM Would consider treating for potential urinary tract infection pending on surgical disposition or other interventions necessary Handing off at change of shift pending ultrasound Medical Records Medical records reviewed: Yes I reviewed the patient's medical records Lab Data Lab results reviewed: Yes I reviewed the patient's lab results Labs: Lab Results 11/16/24 11/16/24 Range/Units 04:00 05:29 WBC 13.17 H (4.50-11.00) K/uL RBC 4.48 (4.00-5.20) m/uL Hgb 13.2 (12.0-16.0) gm/dL Hct 41.1 (33.0-51.0) % MCV 92 (80-100) fL MCH 30 (26-34) pg MCHC 32 (32-36) gm/dL RDW Coeff of Gilberto 12.8 (11.5-15.5) % Plt Count 289 (140-440) K/uL Neut % (Auto) 78.5 H (42.0-72.0) % Lymph % (Auto) 14.1 L (20-44) % [place] % (Auto) 6.5 (0.0-11.0) % Eos % (Auto) 0.4 (0.0-7.0) % Baso % (Auto) 0.4 (0.0-3.0) % Neut # (Auto) 10.30 H (1.7-7.0) K/uL Lymph # (Auto) 1.90 (0.90-2.90) K/uL [place] # (Auto) 0.90 (0.00-0.90) K/UL Eos # (Auto) 0.10 (0.00-0.50) K/uL Baso # (Auto) 0.10 (0.00-0.30) K/uL Abs Immat Gran (auto) 0.00 (0.00-0.30) K/uL Imm/Tot Granulo (auto) 0.1 % Sodium 136 (135-149) mmol/L Potassium 4.7 (3.6-5.1) mmol/L Chloride 102 (96-114) mmol/L Carbon Dioxide 26 (20-32) mmol/L Anion Gap 8 (7-15) mEq/L BUN 21 (7-30) mg/dL Creatinine 1.0 (0.5-1.5) mg/dL Estimated Creat Clear 45.20 Estimated GFR 61 ml/min Glucose 163 H (60-115) mg/dL Calcium 9.4 (8.4-10.6) mg/dL Total Bilirubin 0.7 (0.1-1.5) mg/dL Direct Bilirubin 0.2 (0.0-0.5) mg/dL AST 23 (12-35) U/L ALT 15 (4-35) U/L Alkaline Phosphatase 77 (40-150) U/L C-Reactive Protein 1.2 H (0.5-1.0) mg/dL Total Protein 7.0 (6.0-8.3) g/dL Albumin 4.2 (3.3-5.0) g/dL Lipase 39 (23-300) U/L Urine Color Yellow (Yellow) Urine Appearance Cloudy A (Clear) Urine pH 6.5 (5.0-8.5) Ur Specific [place] 1.025 (1.000-1.030) Urine Protein 3+ A (Negative) Urine Glucose (UA) Negative (Negative) Urine Ketones Trace A (Negative) Urine Blood 1+ A (Negative) Urine Nitrite Positive A (Negative) Urine Bilirubin Negative (Negative) Urine Urobilinogen 1.0 (0.2-1.0) Ur Leukocyte Esterase Trace A (Negative) Urine RBC 0-2 (0-2) Urine WBC 2-5 (0-5) Ur Squamous Epith Cells Few (None-Few) Urine Bacteria Many A (None) Discharge Plan Discharge Clinical Impression: Abdominal pain, acute, right upper quadrant Prescriptions: No Action donepezil 5 mg tablet 5 mg PO QPM albuterol sulfate 2.5 mg /3 mL (0.083 %) solution for nebulization 1 Q4H PRN (Reason: wheezing) clopidogrel 75 mg tablet 75 mg PO DAILY citalopram 20 mg tablet 20 mg PO DAILY fluticasone propion-salmeterol 500-50 mcg/dose blister with device INHALATION Patient Comments: [NO ORIGINAL SIG] metoprolol succinate 25 mg tablet extended release 24 hr 25 mg PO DAILY metformin 500 mg tablet extended release 24 hr 1,000 mg PO BID valsartan 40 mg tablet 40 mg PO DAILY rosuvastatin 40 mg tablet 40 mg PO QPM insulin glargine [Lantus Solostar U-100 Insulin] 100 unit/mL (3 mL) insulin pen 23 unit subcut Ozempic 0.25 mg or 0.5 mg (2 mg/3 mL) pen injector 0.5 mg subcut Follow Up/Referrals: Amanda Pathak PA-C [Referring, Family Practice]
--- NOTE | 2024-11-16 07:21 | CRLHL7_ITS ---
For Patients: As a result of the Century Cures Act, medical imaging exams and procedure reports are released immediately into your electronic medical record. You may view this report before your referring provider. If you have questions, please contact your health care provider. Indication: Pain. Abnormal CT Technique: Sonography of the abdomen was performed limited to the structures discussed below Comparison: A CT from November 17, 2019 Findings: The liver as visualized appears normal. Normal echogenicity. No intrahepatic biliary ductal dilation. The gallbladder is distended. The wall is abnormally thickened measuring about 3.2 millimeters. No pericholecystic fluid. A stone is seen in the gallbladder neck which did not move with dependent positioning. A sonographic Denny`s sign was reported. The right kidney is unremarkable measuring 9.8 x 5.6 x 6.4 centimeters. No hydronephrosis. The pancreas was not seen. The main portal vein was patent with appropriate direction of flow Impression: Findings likely indicating acute cholecystitis in the appropriate clinical setting Dictated by Arnol Bain MD @ 11/16/2024 9:26:51 AM (Electronically Signed)
[2024-11-16] MEDS: 0.9 % SODIUM CHLORIDE 1000 ml 1,000 ML IV (07:47)
--- NOTE | 2024-11-16 11:26 | PM.GSCN ---
History of Present Illness Consult details Date Seen: 11/16/24 Consult date: 11/16/24 Narrative: 69-year-old female on Plavix presented to emergency room overnight and I was asked by Dr. Connolly to see her in consultation. Patient states that yesterday in the afternoon she developed crampy abdominal pain in the right side. Her pain was persistent and got worse throughout the day. She was not comfortable and could not fall asleep. Patient had nausea and vomiting. She thinks she was passing gas. Her last bowel movement was today in the morning. Patient had a similar episode 5 years ago and was told that she had gallstones. That episode improved with conservative management. I personally reviewed patient's workup in the emergency room. She was found to have elevated WBC of 13. Patient's hemoglobin was 13. Patient's creatinine was 1.2. Her liver function tests were normal. Abdominal CT was obtained that showed a distended long gallbladder with stones. There was pericholecystic fluid and gallbladder wall thickening. There was no evidence of dilated small large intestine. Abdominal ultrasound also confirmed presence of stones with a large stone in the neck of the gallbladder. The gallbladder wall was measured at 5 mm. Common bile duct was 4 mm thick. Patient's EKG showed regular sinus rhythm with no ST elevations. Review of Systems Narrative: General: no fevers HENT: no problems swallowing CV: no shortness of breath Resp: no cough GI: No nausea, vomiting, abdominal pain : no dysuria, no increased urinary frequency, no hematuria Skin: no new rashes Musculoskeletal: no back pain Neuro: no muscle weakness Psyche: no depression, no anxiety PFSH PFSH Medical History (Updated 11/16/24 @ 11:33 by Flako Hassan MD) Rheumatoid arthritis ?M06.9 - Rheumatoid arthritis, unspecified (ICD-10) Polycystic ovaries ?E28.2 - Polycystic ovarian syndrome (ICD-10) Major depression ?F32.9 - Major depressive disorder, single episode, unspecified (ICD-10) CAD, multiple vessel ?I25.10 - Atherosclerotic heart disease of [place] coronary artery without angina pectoris (ICD-10) Atherosclerotic heart disease of [place] coronary artery with other forms of angina pectoris ?I25.118 - Atherosclerotic heart disease of [place] coronary artery with other forms of angina pectoris (ICD-10) Stage 3a chronic kidney disease ?N18.31 - Chronic kidney disease, stage 3a (ICD-10) COPD mixed type ?J44.9 - Chronic obstructive pulmonary disease, unspecified (ICD-10) Sleep apnea ?G47.30 - Sleep apnea, unspecified (ICD-10) HTN (hypertension) ?I10 - Essential (primary) hypertension (ICD-10) Type II diabetes mellitus ?E11.9 - Type 2 diabetes mellitus without complications (ICD-10) Insomnia ?G47.00 - Insomnia, unspecified (ICD-10) Surgical History (Updated 11/16/24 @ 11:33 by Flako Hassan MD) History of knee replacement ?Z96.659 - Presence of unspecified artificial knee joint (ICD-10) History of carpal tunnel surgery ?Z98.890 - Other specified postprocedural states (ICD-10) S/P drug eluting coronary stent placement ?Z95.5 - Presence of coronary angioplasty implant and graft (ICD-10) History of Margot-en-Y gastric bypass ?Z98.84 - Bariatric surgery status (ICD-10) Social History (Updated 11/16/24 @ 11:33 by Flako Hassan MD) Narrative: Patient lives with her sister. She denies smoking and rarely drinks alcohol. She is retired. Smoking Status: Never smoker Do you use any of these nicotine containing products: None How often do you have a drink containing alcohol: never AUDIT-C Alcohol total score: 0 Non-prescribed substance use: denies use Meds Home Medications and Allergies Home Medications ?Medication ?Instructions ?Recorded ?Confirmed ?Type albuterol sulfate 2.5 mg/3 mL 1 Q4H PRN wheezing 11/16/24 History (0.083 %) solution for nebulization citalopram 20 mg tablet 20 mg PO DAILY 11/16/24 11/16/24 History clopidogrel 75 mg tablet 75 mg PO DAILY 11/16/24 11/16/24 History donepezil 5 mg tablet 5 mg PO QPM 11/16/24 11/16/24 History fluticasone 500 mcg-salmeterol 50 inhalation 11/16/24 History mcg/dose blistr powdr for inhalation insulin glargine 100 unit/mL (3 23 unit subcut 11/16/24 History mL) subcutaneous pen (Lantus Solostar U-100 Insulin) metformin 500 mg tablet,extended 1,000 mg PO BID 11/16/24 11/16/24 History release 24 hr metoprolol succinate 25 mg 25 mg PO DAILY 11/16/24 11/16/24 History tablet,extended release 24 hr rosuvastatin 40 mg tablet 40 mg PO QPM 11/16/24 11/16/24 History semaglutide 0.25 mg or 0.5 mg (2 0.5 mg subcut 11/16/24 History mg/3 mL) subcutaneous pen injector (Ozempic) valsartan 40 mg tablet 40 mg PO DAILY 11/16/24 11/16/24 History Allergies Allergy/AdvReac Type Severity Reaction Status Date / Time No Known Drug Allergies Allergy Verified 11/16/24 07:43 Exam Narrative: Exam Narrative: General appearance: Alert, cooperative, and in no distress Pulmonary: Chest symmetric, lungs clear bilaterally Cardiovascular Heart: Regular rate and rhythm, S1, S2, no murmurs/rubs/gallops Gastrointestinal Abdominal: soft, not distended, there is a well-healed right upper quadrant subcostal surgical scar from patient's gastric bypass. There is another well-healed stellate scar in the right mid abdomen from patient's infection due to injections. Patient has tenderness to palpation in the right upper quadrant with negative Denny sign. Skin: Normal skin color, texture, and turgor. No rashes or lesions. Psychiatric: Alert, cooperative, normal affect. Const: Vital Signs, click to edit/add: Vital Signs - 24 hr 11/16/24 04:08 11/16/24 05:41 11/16/24 07:54 Temperature 98.1 F Pulse Rate [Pulse Oximeter] 71 72 74 Respiratory Rate 18 16 16 Blood Pressure [Ri ght Upper Arm] 150/76 H 127/72 105/60 Pulse Oximetry 96 95 96 Oxygen Delivery Me thod Room Air Room Air Room Air 11/16/24 10:16 Temperature Pulse Rate [Pulse Oximeter] 67 Respiratory Rate 16 Blood Pressure [Ri ght Upper Arm] 109/61 Pulse Oximetry 96 Oxygen Delivery Me thod Room Air Results Labs Labs: Abnormal lab results 11/16/24 11/16/24 Range/Units 04:00 05:29 WBC 13.17 H (4.50-11.00) K/uL Neut % (Auto) 78.5 H (42.0-72.0) % Lymph % (Auto) 14.1 L (20-44) % Neut # (Auto) 10.30 H (1.7-7.0) K/uL Glucose 163 H (60-115) mg/dL C-Reactive Protein 1.2 H (0.5-1.0) mg/dL Urine Appearance Cloudy A (Clear) Urine Protein 3+ A (Negative) Urine Ketones Trace A (Negative) Urine Blood 1+ A (Negative) Urine Nitrite Positive A (Negative) Ur Leukocyte Esterase Trace A (Negative) Urine Bacteria Many A (None) Diabetes panel 11/16/24 Range/Units 05:29 Sodium 136 (135-149) mmol/L Potassium 4.7 (3.6-5.1) mmol/L Chloride 102 (96-114) mmol/L Carbon Dioxide 26 (20-32) mmol/L BUN 21 (7-30) mg/dL Creatinine 1.0 (0.5-1.5) mg/dL Glucose 163 H (60-115) mg/dL Calcium 9.4 (8.4-10.6) mg/dL AST 23 (12-35) U/L ALT 15 (4-35) U/L Alkaline Phosphatase 77 (40-150) U/L Total Protein 7.0 (6.0-8.3) g/dL Albumin 4.2 (3.3-5.0) g/dL Calcium panel 11/16/24 Range/Units 05:29 Calcium 9.4 (8.4-10.6) mg/dL Albumin 4.2 (3.3-5.0) g/dL Pituitary panel 11/16/24 Range/Units 05:29 Sodium 136 (135-149) mmol/L Potassium 4.7 (3.6-5.1) mmol/L Chloride 102 (96-114) mmol/L Carbon Dioxide 26 (20-32) mmol/L BUN 21 (7-30) mg/dL Creatinine 1.0 (0.5-1.5) mg/dL Glucose 163 H (60-115) mg/dL Calcium 9.4 (8.4-10.6) mg/dL Adrenal panel 11/16/24 Range/Units 05:29 Sodium 136 (135-149) mmol/L Potassium 4.7 (3.6-5.1) mmol/L Chloride 102 (96-114) mmol/L Carbon Dioxide 26 (20-32) mmol/L BUN 21 (7-30) mg/dL Creatinine 1.0 (0.5-1.5) mg/dL Glucose 163 H (60-115) mg/dL Calcium 9.4 (8.4-10.6) mg/dL Total Bilirubin 0.7 (0.1-1.5) mg/dL AST 23 (12-35) U/L ALT 15 (4-35) U/L Alkaline Phosphatase 77 (40-150) U/L Total Protein 7.0 (6.0-8.3) g/dL Albumin 4.2 (3.3-5.0) g/dL All other labs normal. Progress Note:A&P Assessment and plan (1) Cholecystitis, acute: Status: Acute Plan 69-year-old female on Plavix and aspirin presents with right upper quadrant pain concerning for acute cholecystitis. I discussed with the patient her clinical findings and her laboratory findings. Patient is a diabetic. Patient has mildly elevated WBC with normal liver function tests. Patient's CT and ultrasound both showed distended gallbladder with gallbladder wall thickening concerning for acute cholecystitis. Patient also has a large stone in the neck of the gallbladder the could be the culprit of her pain. I recommended to proceed with laparoscopic cholecystectomy. The procedure was discussed in detail. The risks associated procedure including infection, bleeding, injury to intra-abdominal organs, and the need for additional procedures were all discussed with the patient. I discussed with the patient that her risk of bleeding is higher than average population because of her Aspirin and Plavix. However, given her clinical presentation, the benefit of proceeding with cholecystectomy outweighs the benefit of holding Plavix for 7 days prior to surgical intervention. Patient is in agreement to proceed with surgery.
--- NOTE | 2024-11-16 11:41 | P.GSOP_ITS ---
Operative Note Date of procedure: 11/16/24 Pre-op diagnosis: 1. Acute cholecystitis. 2. s/p open gastric bypass. Post-op diagnosis: 1. Acute cholecystitis. 2. Multiple omental adhesions to the abdominal wall. 3. s/p open gastric bypass. Type of Procedure: 1. Laparoscopic cholecystectomy. 2. Laparoscopic lysis of adhesions. Indications: 69-year-old female presented to emergency room with crampy right upper quadrant abdominal pain. Patient's pain started yesterday in the afternoon. Patient only had breakfast in the morning. She had nausea and vomiting but continued to pass gas. The pain was severe and patient could not fall asleep. Upon her workup in the emergency room she was found to have mildly elevated WBC of 13. Liver function tests were normal. Patient's abdominal CT showed dilated long gallbladder with cholelithiasis. There was mild pericholecystic inflammation. Gallbladder ultrasound was obtained that showed cholelithiasis with a larger stone in the neck of the gallbladder. The gallbladder wall was measured at 5 mm. Common bile duct was 4 mm thick. On clinical exam patient had tenderness to palpation in the right upper quadrant with negative Denny sign. Given patient's clinical history and her physical exam, acute cholecystitis was suspected, and laparoscopic cholecystectomy was recommended. The procedure was discussed in detail. The risks associated procedure including infection, bleeding, injury to intra-abdominal organs, and the need for additional procedures were all discussed the patient. I did discuss with the patient her increased risk of bleeding due to her being on Plavix and aspirin. Procedure Description: After discussing the risks and benefits of the procedure, the patient signed informed consent.? The operative site was marked and the patient was brought to the operating room and placed on the operating table in supine position.? Care was taken to pad the patient's pressure points.?? The patient was then intubated by anesthesia.?? The operative site was then prepped and draped in the usual sterile fashion.? A time-out was then performed. A 5-mm laparoscopy port was placed in the left upper quadrant guided by a 5-mm laparoscope placed into a translucent trochar.~ Passage through the layers of the abdominal wall was visualized with the laparoscope, however the muscular layers of abdominal wall were not clearly visualized and the tip of the trocar appeared to be in the fat. I attempted to reposition this trocar again but was not successful at placing it into the abdomen. At this time I elected to proceed with placing a 12 mm Nery port supraumbilically. Local anesthetic was injected at the superior aspect of the umbilicus. A curvilinear surgical incision was made with a scalpel at the superior aspect of the umbilicus. Subcutaneous fat was bluntly divided with S retractors. The anterior fascia was then grasped with Johnathon clamps. The anterior fascia was incised with suture scissors. The posterior fashion peritoneum were then grasped with a Radha clamp and incised with scissors as well. The 5 mm Visiport was then inserted into the abdomen and abdomen was insufflated. A pneumoperitoneum was established and it was clear that upper central abdomen and left upper abdomen were completely encased with adhesions. A 0-degree 5-mm laparoscope was advanced into the right upper quadrant into a clear window without adhesions. I was able to place a 5 mm port in the right upper quadrant under direct visualization. I then proceeded with lysis of adhesions with hook cautery. Most of the adhesions were wispy attaching the omentum to the abdominal wall. Superiorly transverse colon was attached to the abdominal wall in the left upper quadrant. In the midline falciform ligament was mobilized with hook cautery. Bleeding was seen from vasculature of the falciform ligament and that was controlled with 5 mm clips. I was able to visualize the peritoneum directly underneath my attempt at placing 5 mm port into the abdomen and peritoneum was not violated suggestive that my port was not in the abdomen. The left upper quadrant was frozen with multiple adhesions. This was left alone. Additional 5 mm port was placed in the left mid abdomen and right upper quadrant under direct visualization. The supraumbilical port was replaced with a 12 mm Granados port. The camera was changed to 10 mm 30 degree scope. The gallbladder was distended and very long. It was tightly adherent with adhesions to the liver medially. I used laparoscopic needle and 50 mL syringe to drain the gallbladder fluid. Bloody in appearance clear fluid was drained from the gallbladder. A total of 150 mL was drained to be able to grasp the gallbladder and manipulated easier. The fluid was sent for culture. Omentum was tightly adherent to the anterior surface of the gallbladder and these adhesions were taken down with hook cautery. Small intestine was adherent to the mid gallbladder and aleksander were seen in this part of the small intestine. This was thought to be part of her Margot-en-Y gastric bypass. This segment was carefully mobilized off the gallbladder with Metzenbaum scissors. One thickened adhesion was clipped with 5 mm clip on the patient's side to avoid bleeding. This segment of small intestine was finally able to be retracted towards the stomach. I continued to do lysis of adhesions to mobilize omentum off the gallbladder and to be able to see the gallbladder wall. I finally identified the gallbladder infundibulum and that was identified with hook cautery and with Ele dissector. The infundibulum was grasped and retracted laterally, exposing the peritoneum overlying the triangle of Calot. This was then divided and exposed in a blunt fashion and with hook cautery. Common bile duct was not identified but care was taken not to injure it. The cystic artery was small located medial to the gallbladder. This was clearly going into the gallbladder. This was clipped with 5 mm clips on the patient's side and a 5 mm clip on the specimen side and divided with Metzenbaum scissors. Arterial lumen was seen after this was divided confirming that this was a cystic artery. I continued dissecting soft tissue in the triangle of Calot. This was done carefully to avoid injury to the common bile duct. A prominent vein adjacent to the cystic duct was clipped with 5 mm clip on the patient's side and divided with hook cautery on the specimen side. The peritoneum on the lateral side of the gallbladder was divided with hook cautery. A small arterial branch was noted to going to the gallbladder posteriorly. This was circumferentially dissected with Ele dissector. This was clipped with 5 mm clips on the patient's side and the specimen side and divided with hook cautery. When the cystic duct was dissected circumferentially from adjacent tissues, any stones that for near the infundibulum were milked into the gallbladder. The cystic duct was then clipped with 2 5 mm clips on the patient's side and a single clip on the specimen side. The clips did not quite get across the entire cystic duct. The cystic duct was divided with Metzenbaum scissors. I elected to place 0-0 PDS endoloop just proximal to the cystic duct clips on the cystic duct stump. We then continued to dissect the gallbladder from the gallbladder fossa. During this dissection edema was seen in the gallbladder wall. In the middle of the gallbladder fossa it was difficult to tell the plane between the gallbladder and the liver and bleeding was seen from the liver. The gallbladder wall was entered and bile and small black stones were spilled from the gallbladder. These were suctioned out and larger stones were crushed and suctioned out as well. We then continued dissecting the gallbladder off the liver until it was finally free from the liver. The gallbladder was then placed into the Endo- Catch bag and removed from the supraumbilical incision. Surgical site was examined for bleeding. Small amount of bleeding was seen from the medial gallbladder fossa liver edge. This was controlled with hook cautery. The right upper quadrant was irrigated with copious amounts of normal saline and all pieces of stones were collected and removed from the abdomen. Our field of dissection and areas of lysis of adhesions was examined closely and no bleeding was seen. I then placed 15 round Ian drain through the right upper quadrant incision into the abdomen. The drain was positioned subhepatic Jessica and in the gallbladder fossa. The drain was secured to the skin with 3-0 nylon suture. Jasmeet was sprayed in the gallbladder fossa laparoscopically. The supraumbilical port was then removed and the fascia was closed with 0-0 Vicryl U-stitch. All laparoscopic ports were removed after reducing peritoneum. Supraumbilical incision was then irrigated with normal saline. The dermis of the supraumbilical incision was reapproximated with interrupted 3-0 Vicryl sutures. The skin of all laparoscopic incisions was then closed with 4-0 monocryl and steristrips were applied over the incision. Sterile gauze was placed over umbilical incision and secured in place with tape. Drain sponge was placed under the drain and secured in place with tape as well. Instrument, sponge, and needle counts were correct at closure and at the conclusion of the case. The patient was transferred to PACU in stable condition. Findings: 1. Inflamed gallbladder, multiple adhesions in the upper abdomen from patient's open Margot-en-Y gastric bypass. Anesthesia: GETA Surgeon: Flako Hassan MD Estimated blood loss (mL): 20 Additional Specimen Information: Gallbladder and Gallbladder fluid for culture. Condition: stable Disposition: observation
[2024-11-16] MEDS: LACTATED RINGERS 1000 ML 1,000 ML 100 ML IV ×2 (11:44→14:15)
[2024-11-16] MEDS: LIDOCAINE 1%-EPI 1:100,000 20 ML INFILTRATI (12:12)
--- NOTE | 2024-11-16 12:14 | P.ANES_ITS ---
Anesthesia Charges Start Date/Time Anesthesia Start Date: 11/16/24 Anesthesia Start Time: 11:44 Stop Date/Time Anesthesia Stop Date: 11/16/24 Anesthesia Stop Time: 15:50 Summary Emergency: LATHER APPRENTICE Extremes of Age - Over 70 or under 1: LATHER APPRENTICE Coding CPT Codes CPT Codes: ANESTH SURG UPPER ABDOMEN - 31478 ([id number]) P3 - PATIENT W/SEVERE SYS DISEASE, QZ - LATHER APPRENTICE SVC W/O DIGITAL ART DIRECTOR BY Additional Codes: Summary - Emergency: LATHER APPRENTICE ([id number]) Summary - Extremes of Age - Over 70 or under 1: LATHER APPRENTICE ([id number])
--- NOTE | 2024-11-16 12:14 | W.ANESCHARGE ---
Anesthesia Charges Start Date/Time Anesthesia Start Date: 11/16/24 Anesthesia Start Time: 11:44 Stop Date/Time Anesthesia Stop Date: 11/16/24 Anesthesia Stop Time: 15:50 Summary Emergency: DEVELOPMENT INTERN Extremes of Age - Over 70 or under 1: DEVELOPMENT INTERN Coding CPT Codes CPT Codes: ANESTH SURG UPPER ABDOMEN - 64097 ([id number]) P3 - PATIENT W/SEVERE SYS DISEASE, QZ - DEVELOPMENT INTERN SVC W/O LINE MAINTENANCE SUPERVISOR BY Additional Codes: Summary - Emergency: DEVELOPMENT INTERN ([id number]) Summary - Extremes of Age - Over 70 or under 1: DEVELOPMENT INTERN ([id number])
[2024-11-16] MEDS: BUPIVACAINE 0.25% 30 ML INJECTION (12:15)
[2024-11-16] MEDS: ACETAMINOPHEN 325 MG TABLET 650 MG PO (18:10)
[2024-11-16] MEDS: INSULIN ASPART 100 UNIT/ML SUBCUT ×2 (18:17→21:35)
--- NOTE | 2024-11-16 19:44 | PC.NURSE ---
Patient arrived to the floor alert and oriented but their thinking seemed somewhat sluggish in-line with recent anesthesia. Post-op procedure followed including assessments and vitals. Still underway at time of shift end. Patient had ambulated SBA w/ RW, tolerated PO water and full liquid diet, and had urinated 650 ml?s of light yellow urine. They are experiencing urinary frequency and stress incontinence described as their normal by the patient. Brief is in place. Lap sites appear normal. MICHAEL drain present on right abdomen. Leaking around the insertion site. Line stripped twice and dressing changed along with soiled shirt. Serosanguineous fluid in MICHAEL drain. Hypertensive. Patient takes blood pressure medication but cannot recall if they took any today. None available in chart. Medications reviewed with charge nurse and report given to oncoming nurse to notify surgical team if blood pressure remains highly elevated. The patient also described having an allergy to NSAIDS that was not in her chart. Her mentation was still off at this point and what she experienced in the past sounds more in-line with a GI bleed, but we added it as an allergy in her records. Incident report to be filled. At time of care transfer the patient continued to appear tired and subdued.?
--- NOTE | 2024-11-16 19:56 | PC.NURSE ---
Concerning the possible NSAID allergy, both charge nurse and preceptor confirm reported symptoms not in-line with an allergy but yes in-line with GI bleed. No report filed.
--- NOTE | 2024-11-16 21:19 | PM.IMCN1 ---
Date of Consult Patient: Saúl Patient Consult date: 11/16/24 Requesting Physician: General Surgery Primary Care Provider: Paula Jamil PA-C Consult Narrative Reason for consult: Assist with postop coronary artery disease, diabetes, COPD, hypertension Narrative: Tiara Bolaños is a 69 year old woman underwent urgent laparoscopic cholecystectomy and laparoscopic lysis of adhesions due to severe, symptomatic acute cholecystitis and symptomatic cholelithiasis. Doing well postoperatively at this time. Presented early this morning with a 12 hour history of worsening right upper quadrant abdominal pain. Had a similar episode of biliary colic about 5 years previously. None since. Review of Systems Status of ROS: Reports: 6 or more systems reviewed and unremarkable except as noted in History and below Narrative: Underwent stenting of 3 coronary arteries in 2021 with drug-eluting stents. Has been doing well since then with medical management efforts, including dual anti-platelet therapy with aspirin and clopidogrel. Has COPD which is well controlled on current regimen including inhaled steroid and long-acting beta agonist and as needed short-acting beta agonist. Diabetes mellitus generally well controlled on current regimen. Last took any medication for her diabetes yesterday morning, about 36 hours ago. Most recent blood sugar this evening is 258. Treated with donepezil for mild cognitive impairment since 2020 and doing well with that. Helping to raise her grandson, 11 years old, who lives with her and her sister. [facility] Medical History (Updated 11/16/24 @ 21:34 by Huang Dawkins MD) Cognitive impairment ?R41.89 - Other symptoms and signs involving cognitive functions and awareness (ICD-10) Nonproliferative diabetic retinopathy ?E11.3299 - Type 2 diabetes mellitus with mild nonproliferative diabetic retinopathy without macular edema, unspecified eye (ICD-10) History of colon polyps ?Z86.0100 - Personal history of colon polyps, unspecified (ICD-10) Hypertensive kidney disease ?I12.9 - Hypertensive chronic kidney disease with stage 1 through stage 4 chronic kidney disease, or unspecified chronic kidney disease (ICD-10) History of angina pectoris ?Z86.79 - Personal history of other diseases of the circulatory system (ICD-10) Diabetes mellitus type 2 in nonobese ?E11.9 - Type 2 diabetes mellitus without complications (ICD-10) Chronic cough ?R05.3 - Chronic cough (ICD-10) Carpal tunnel syndrome ?G56.00 - Carpal tunnel syndrome, unspecified upper limb (ICD-10) History of morbid obesity ?Z86.39 - Personal history of other endocrine, nutritional and metabolic disease (ICD-10) Dyslipidemia ?E78.5 - Hyperlipidemia, unspecified (ICD-10) Osteoarthritis ?M19.90 - Unspecified osteoarthritis, unspecified site (ICD-10) Rheumatoid arthritis ?M06.9 - Rheumatoid arthritis, unspecified (ICD-10) Polycystic ovaries ?E28.2 - Polycystic ovarian syndrome (ICD-10) Major depression ?F32.9 - Major depressive disorder, single episode, unspecified (ICD-10) CAD, multiple vessel ?I25.10 - Atherosclerotic heart disease of [place] coronary artery without angina pectoris (ICD-10) Atherosclerotic heart disease of [place] coronary artery with other forms of angina pectoris ?I25.118 - Atherosclerotic heart disease of [place] coronary artery with other forms of angina pectoris (ICD-10) Stage 3a chronic kidney disease ?N18.31 - Chronic kidney disease, stage 3a (ICD-10) COPD mixed type ?J44.9 - Chronic obstructive pulmonary disease, unspecified (ICD-10) Sleep apnea ?G47.30 - Sleep apnea, unspecified (ICD-10) HTN (hypertension) ?I10 - Essential (primary) hypertension (ICD-10) Type II diabetes mellitus ?E11.9 - Type 2 diabetes mellitus without complications (ICD-10) Insomnia ?G47.00 - Insomnia, unspecified (ICD-10) Surgical History Hx of tonsillectomy ?Z90.89 - Acquired absence of other organs (ICD-10) S/P lumbar laminectomy ?Z98.890 - Other specified postprocedural states (ICD-10) H/O colonoscopy with polypectomy ?Z98.890 - Other specified postprocedural states (ICD-10) ?Z86.0100 - Personal history of colon polyps, unspecified (ICD-10) S/P bunionectomy ?Z98.890 - Other specified postprocedural states (ICD-10) History of knee replacement ?Z96.659 - Presence of unspecified artificial knee joint (ICD-10) History of carpal tunnel surgery ?Z98.890 - Other specified postprocedural states (ICD-10) S/P drug eluting coronary stent placement ?Z95.5 - Presence of coronary angioplasty implant and graft (ICD-10) History of Margot-en-Y gastric bypass ?Z98.84 - Bariatric surgery status (ICD-10) Family History Brother Diabetes Father Diabetes Heart disease Social History Narrative: Patient lives with her sister. She denies smoking and rarely drinks alcohol. She is retired. Smoking Status: Never smoker Do you use any of these nicotine containing products: None How often do you have a drink containing alcohol: never AUDIT-C Alcohol total score: 0 Non-prescribed substance use: denies use Meds Home Medications and Allergies Home Medications ?Medication ?Instructions ?Recorded ?Confirmed ?Type albuterol sulfate 2.5 mg/3 mL 1 Q4H PRN wheezing 11/16/24 History (0.083 %) solution for nebulization citalopram 20 mg tablet 20 mg PO DAILY 11/16/24 11/16/24 History clopidogrel 75 mg tablet 75 mg PO DAILY 11/16/24 11/16/24 History donepezil 5 mg tablet 5 mg PO QPM 11/16/24 11/16/24 History fluticasone 500 mcg-salmeterol 50 inhalation 11/16/24 History mcg/dose blistr powdr for inhalation insulin glargine 100 unit/mL (3 23 unit subcut 11/16/24 History mL) subcutaneous pen (Lantus Solostar U-100 Insulin) metformin 500 mg tablet,extended 1,000 mg PO BID 11/16/24 11/16/24 History release 24 hr metoprolol succinate 25 mg 25 mg PO DAILY 11/16/24 11/16/24 History tablet,extended release 24 hr rosuvastatin 40 mg tablet 40 mg PO QPM 11/16/24 11/16/24 History semaglutide 0.25 mg or 0.5 mg (2 0.5 mg subcut 11/16/24 History mg/3 mL) subcutaneous pen injector (Ozempic) valsartan 40 mg tablet 40 mg PO DAILY 11/16/24 11/16/24 History Allergies Allergy/AdvReac Type Severity Reaction Status Date / Time NSAIDS (Non-Steroidal AdvReac Verified 11/16/24 17:52 Anti-Inflamma Exam Narrative: Exam Narrative: Examined patient in her hospital room postoperatively. She is awake, alert, oriented x4. Friendly, articulate, cooperative. Vision and hearing are adequate. No jaundice or icterus. No petechiae. Conjugate gaze. Midline nasal septum. Dentition in fair repair. Neck is supple. No head neck lymphadenopathy. Lungs are clear to auscultation without wheezing, rhonchi, or rales. Heart tones with regular rhythm, normal S1-S2, without murmur, gallop, rub. PMI not laterally displaced. Abdomen is quiet at this time. Hypoactive bowel sounds. Extremities without edema. No focal motor neurologic deficits. Const: Vital Signs, click to edit/add: Vital Signs - 24 hr 11/16/24 04:08 11/16/24 05:41 11/16/24 07:54 Temperature 98.1 F Pulse Rate Pulse Rate [Pulse Oximeter] 71 72 74 Respiratory Rate 18 16 16 Blood Pressure Blood Pressure [Ri ght Upper Arm] 150/76 H 127/72 105/60 Pulse Oximetry 96 95 96 Oxygen Delivery Me thod Room Air Room Air Room Air Oxygen Flow Rate 11/16/24 10:16 11/16/24 15:35 11/16/24 15:40 Temperature 97.7 F Pulse Rate 62 63 Pulse Rate [Pulse Oximeter] 67 Respiratory Rate 16 15 16 Blood Pressure 129/60 129/63 Blood Pressure [Ri ght Upper Arm] 109/61 Pulse Oximetry 96 96 97 Oxygen Delivery Me thod Room Air OxyMask Oxygen Flow Rate 6 11/16/24 15:45 11/16/24 15:50 11/16/24 15:55 Temperature Pulse Rate 61 59 L 66 Pulse Rate [Pulse Oximeter] Respiratory Rate 16 16 17 Blood Pressure 127/67 132/66 127/65 Blood Pressure [Ri ght Upper Arm] Pulse Oximetry 99 99 94 Oxygen Delivery Me thod Room Air Oxygen Flow Rate 11/16/24 16:00 11/16/24 16:05 11/16/24 16:15 Temperature 97.4 F L 97.3 F L Pulse Rate 64 61 61 Pulse Rate [Pulse Oximeter] Respiratory Rate 16 16 12 Blood Pressure 135/73 127/67 136/72 Blood Pressure [Ri ght Upper Arm] Pulse Oximetry 96 95 92 Oxygen Delivery Me thod Room Air Room Air Oxygen Flow Rate 11/16/24 16:30 11/16/24 16:45 11/16/24 17:00 Temperature 97.4 F L 97.5 F L Pulse Rate 62 61 65 Pulse Rate [Pulse Oximeter] Respiratory Rate 16 16 16 Blood Pressure 140/76 H 147/72 H 140/72 H Blood Pressure [Ri ght Upper Arm] Pulse Oximetry 90 90 90 Oxygen Delivery Me thod Room Air Room Air Room Air Oxygen Flow Rate 11/16/24 17:15 11/16/24 17:30 11/16/24 17:45 Temperature 97.9 F 97.9 F 97.4 F L Pulse Rate 63 65 65 Pulse Rate [Pulse Oximeter] Respiratory Rate 16 16 16 Blood Pressure 135/71 147/74 H 152/78 H Blood Pressure [Ri ght Upper Arm] Pulse Oximetry 90 93 90 Oxygen Delivery Me thod Room Air Oxygen Flow Rate 11/16/24 18:00 11/16/24 18:30 11/16/24 19:00 Temperature 97.9 F 97.9 F 98.9 F Pulse Rate 72 72 81 Pulse Rate [Pulse Oximeter] Respiratory Rate 16 16 16 Blood Pressure 155/69 H 144/73 H 151/74 H Blood Pressure [Ri ght Upper Arm] Pulse Oximetry 94 93 90 Oxygen Delivery Me thod Nasal Cannula Nasal Cannula Oxygen Flow Rate 1 1 Labs Labs: Short CBC 11/16/24 Range/Units 05:29 WBC 13.17 H (4.50-11.00) K/uL Hgb 13.2 (12.0-16.0) gm/dL Hct 41.1 (33.0-51.0) % Plt Count 289 (140-440) K/uL BMP 11/16/24 05:29 Sodium 136 Potassium 4.7 Chloride 102 Carbon Dioxide 26 BUN 21 Creatinine 1.0 Glucose 163 H Calcium 9.4 Liver Function 11/16/24 Range/Units 05:29 Total Bilirubin 0.7 (0.1-1.5) mg/dL Direct Bilirubin 0.2 (0.0-0.5) mg/dL AST 23 (12-35) U/L ALT 15 (4-35) U/L Alkaline Phosphatase 77 (40-150) U/L Albumin 4.2 (3.3-5.0) g/dL Urine 11/16/24 Range/Units 04:00 Urine Color Yellow (Yellow) Urine Appearance Cloudy A (Clear) Urine pH 6.5 (5.0-8.5) Ur Specific [place] 1.025 (1.000-1.030) Urine Protein 3+ A (Negative) Urine Glucose (UA) Negative (Negative) ECG Attestation: I personally reviewed and interpreted this ECG as follows: Interpretation: Normal sinus rhythm without evidence of infarct or ischemia. Imaging CT scan - abdomen: Radiologist's impression: IMPRESSION: Calculus cholecystitis. US - abdomen: Radiologist's impression: Findings: The liver as visualized appears normal. Normal echogenicity. No intrahepatic biliary ductal dilation. The gallbladder is distended. The wall is abnormally thickened measuring about 3.2 millimeters. No pericholecystic fluid. A stone is seen in the gallbladder neck which did not move with dependent positioning. A sonographic Denny`s sign was reported. The right kidney is unremarkable measuring 9.8 x 5.6 x 6.4 centimeters. No hydronephrosis. The pancreas was not seen. The main portal vein was patent with appropriate direction of flow Impression: Findings likely indicating acute cholecystitis in the appropriate clinical setting Assessment and Plan Assessment and plan (1) Cholecystitis, acute: Problem comment: -status post laparoscopic cholecystectomy and laparoscopic lysis of adhesions 11/16/2024, Dr. Janae Hassan, with drain left in place -hospitalist service will follow with General surgery while patient is in the hospital Status: Acute (2) CAD, multiple vessel: Problem comment: Multi-vessel, 05/05/2021: -95% left circumflex lesion status post PCI with 3.0 x 24 mm synergy MAIRA; -90% mid RCA lesions status post PCI with 4.0 x 23 mm Xience Skypoint MAIRA; -95% 1st right ANDRE lesion status post PCI with 2.5 X 28 mm Xience Skypoint MAIRA. - will hold clopidogrel and aspirin until such time as patient's surgeon determined as we can restart Status: Acute (3) COPD mixed type: Problem comment: -continue to manage with usual supportive medications scheduled and p.r.n. Status: Acute (4) Type II diabetes mellitus: Problem comment: -has not taking any of her diabetes medications for nearly 36 hours by the time I see her and her fingerstick blood glucose is 258 -sliding scale fast acting insulin q.i.d. ACHS -her usual glargine insulin doses 23 units once daily. Will give 10 units tonight, then 10 units every morning starting tomorrow morning and adjust dose upward as warranted -restart metformin Status: Acute (5) HTN (hypertension): Problem comment: -given her elevated postop blood pressures will restart her antihypertensive medications already Status: Acute Plan 1. Reviewed impression with patient. Also discussed recommendations. 2. Answered her questions to her satisfaction. 3. Patient is agreeable with above stated plans and recommendations. Total Time Spent Total Time Spent: 60 min
[2024-11-16] MEDS: INSULIN GLARGINE,HUM.REC.ANLOG 100 UNIT/ML INSULN.PEN 10 UNIT SUBCUT (21:36)
[2024-11-16] MEDS: METFORMIN ER 500 MG 1000 MG PO (21:36)
[2024-11-17] MEDS: HYDROCODONE-ACETAMIN 5-325 MG 1 TAB PO ×3 (01:35→12:04)
[2024-11-17 03:47] VITALS: BP 129/72; PULSE 69; RESP 18; TEMP 37; O2SAT 90
[2024-11-17 06:51] LABS: Basophils Percent Auto 0.3 % (0.0-3.0); Eosinophils Percent Auto 0.1 % (0.0-7.0); Hematocrit 40.7 % (33.0-51.0); Hemoglobin* 13.1 gm/dL (12.0-16.0); Immature Granulocytes Pct Auto 0.2 %; Lymphocytes Percent Auto 15.5 % (20-44); Mean Corpuscular HGB Conc 32 gm/dL (32-36); Mean Corpuscular Hemoglobin 30 pg (26-34); Mean Corpuscular Volume 93 fL (80-100); Monocytes Percent Auto 6.6 % (0.0-11.0); Neutrophils Percent Auto 77.3 % (42.0-72.0); Platelet Count* 300 K/uL (140-440); White Blood Count* 14.88 K/uL (4.50-11.00)
[2024-11-17 06:53] LABS: Slide Review Reflex No
[2024-11-17 07:00] VITALS: O2SAT 95
[2024-11-17 07:04] LABS: Chloride* 104 mmol/L (96-114); Potassium* 4.4 mmol/L (3.6-5.1); Sodium* 136 mmol/L (135-149)
[2024-11-17 07:07] LABS: Blood Urea Nitrogen* 15 mg/dL (7-30); Creatinine* 0.9 mg/dL (0.5-1.5); Estimated Glomerular Filt Rate 69 ml/min
--- NOTE | 2024-11-17 07:07 | PC.NURSE ---
Pt pleasant, alert and oriented. VSS. MICHAEL drain patent and draining, 50 cc out. Lap sites C/D/I with scant amounts of blood. Pain rated 7/10, prn [place] given, pt stated improvement. Blood glucose at 2100 was 258, (Juancho) notified, see orders. Clear liquid diet, tolerating well. Denies nausea. Bowel sounds hypoactive. Up with standby assist. Pt in bed, appears to be resting, call light within reach.?
[2024-11-17 07:08] LABS: Anion Gap 6 mEq/L (7-15); Calcium* 8.9 mg/dL (8.4-10.6); Carbon Dioxide* 26 mmol/L (20-32); Glucose* 202 mg/dL (60-115)
[2024-11-17 07:15] LABS: Hemoglobin A1C* 7.7 % (0-5.6)
[2024-11-17 07:47] LABS: Albumin* 3.9 g/dL (3.3-5.0)
[2024-11-17 07:50] LABS: Alanine Aminotransferase* 30 U/L (4-35); Alkaline Phosphatase* 70 U/L (40-150); Aspartate Amino Transferase* 52 U/L (12-35); Bilirubin Direct* 0.1 mg/dL (0.0-0.5); Bilirubin Total* 0.8 mg/dL (0.1-1.5); Total Protein* 6.6 g/dL (6.0-8.3)
[2024-11-17 08:30] VITALS: BP 120/66; PULSE 70; RESP 18; TEMP 37; O2SAT 90
[2024-11-17] MEDS: METOPROLOL SUCCINATE (XL) 25 MG TAB PO (09:08)
[2024-11-17] MEDS: INSULIN ASPART 100 UNIT/ML SUBCUT (09:09)
[2024-11-17] MEDS: VALSARTAN 80 MG TABLET 40 MG PO (09:09)
[2024-11-17] MEDS: CITALOPRAM HYDROBROMIDE 20 MG TABLET PO (09:09)
[2024-11-17] MEDS: METFORMIN ER 500 MG 1000 MG PO (09:09)
[2024-11-17] MEDS: INSULIN GLARGINE,HUM.REC.ANLOG 100 UNIT/ML INSULN.PEN 10 UNIT SUBCUT (09:10)
[2024-11-17] MEDS: cefTRIAXone 2 GM in 0.9 % SODIUM CHLORIDE Mini-bag 100 ML IVPB (09:24)
--- NOTE | 2024-11-17 09:29 | P.DS_ITS ---
DS: Providers Provider Date Seen: 11/17/24 Primary care physician: Paula Jamil PA-C Attending Physician on discharge: Flako Hassan MD DS: Diagnosis Discharge Diagnosis (1) S/P laparoscopic cholecystectomy: Status: Acute DS: Summary Hospital Course Hospital Course: 69-year-old female was admitted to the hospital after she underwent laparoscopic cholecystectomy with lysis of adhesions for acute cholecystitis. Patient did well postoperatively. Her drain put out small amounts of bloody serosanguineous fluid. Patient will be discharged home with the drain. Patient's hemoglobin remained stable. Patient's urine culture grew E coli and patient was treated with antibiotics. Patient is going to be discharged with oral antibiotics. Patient tolerated diet postoperatively. She urinated multiple times. She denied nausea vomiting. She did not pass gas on postop day 1. Time Spent with Patient Time attestation: Total time spent providing and/or coordinating discharge services: Exam Narrative: Exam Narrative: Abdomen is soft, not distended, tender to palpation in epigastrium and right abdomen, no peritoneal signs, Steri-Strips are dry over the incisions. The drain is with small amount of bloody thin serosanguineous fluid. Const: Vital Signs, click to edit/add: Vital Signs - 24 hr 11/16/24 10:16 11/16/24 15:35 11/16/24 15:40 Temperature 97.7 F Pulse Rate 62 63 Pulse Rate [Pulse Oximeter] 67 Respiratory Rate 16 15 16 Blood Pressure 129/60 129/63 Blood Pressure [Le ft Arm] Blood Pressure [Ri ght Upper Arm] 109/61 Pulse Oximetry 96 96 97 Oxygen Delivery Me thod Room Air OxyMask Oxygen Flow Rate 6 11/16/24 15:45 11/16/24 15:50 11/16/24 15:55 Temperature Pulse Rate 61 59 L 66 Pulse Rate [Pulse Oximeter] Respiratory Rate 16 16 17 Blood Pressure 127/67 132/66 127/65 Blood Pressure [Le ft Arm] Blood Pressure [Ri ght Upper Arm] Pulse Oximetry 99 99 94 Oxygen Delivery Me thod Room Air Oxygen Flow Rate 11/16/24 16:00 11/16/24 16:05 11/16/24 16:15 Temperature 97.4 F L 97.3 F L Pulse Rate 64 61 61 Pulse Rate [Pulse Oximeter] Respiratory Rate 16 16 12 Blood Pressure 135/73 127/67 136/72 Blood Pressure [Le ft Arm] Blood Pressure [Ri ght Upper Arm] Pulse Oximetry 96 95 92 Oxygen Delivery Me thod Room Air Room Air Oxygen Flow Rate 11/16/24 16:30 11/16/24 16:45 11/16/24 17:00 Temperature 97.4 F L 97.5 F L Pulse Rate 62 61 65 Pulse Rate [Pulse Oximeter] Respiratory Rate 16 16 16 Blood Pressure 140/76 H 147/72 H 140/72 H Blood Pressure [Le ft Arm] Blood Pressure [Ri ght Upper Arm] Pulse Oximetry 90 90 90 Oxygen Delivery Me thod Room Air Room Air Room Air Oxygen Flow Rate 11/16/24 17:15 11/16/24 17:30 11/16/24 17:45 Temperature 97.9 F 97.9 F 97.4 F L Pulse Rate 63 65 65 Pulse Rate [Pulse Oximeter] Respiratory Rate 16 16 16 Blood Pressure 135/71 147/74 H 152/78 H Blood Pressure [Le ft Arm] Blood Pressure [Ri ght Upper Arm] Pulse Oximetry 90 93 90 Oxygen Delivery Me thod Room Air Oxygen Flow Rate 11/16/24 18:00 11/16/24 18:30 11/16/24 19:00 Temperature 97.9 F 97.9 F 98.9 F Pulse Rate 72 72 81 Pulse Rate [Pulse Oximeter] Respiratory Rate 16 16 16 Blood Pressure 155/69 H 144/73 H 151/74 H Blood Pressure [Le ft Arm] Blood Pressure [Ri ght Upper Arm] Pulse Oximetry 94 93 90 Oxygen Delivery Me thod Nasal Cannula Nasal Cannula Oxygen Flow Rate 1 1 11/16/24 23:00 11/16/24 23:00 11/16/24 23:45 Temperature 98.6 F Pulse Rate Pulse Rate [Pulse Oximeter] 72 72 Respiratory Rate 16 18 Blood Pressure Blood Pressure [Le ft Arm] 143/74 H Blood Pressure [Ri ght Upper Arm] Pulse Oximetry 96 91 Oxygen Delivery Me thod Room Air Room Air Oxygen Flow Rate 11/17/24 03:47 11/17/24 08:30 Temperature 98.6 F 98.6 F Pulse Rate Pulse Rate [Pulse Oximeter] 69 70 Respiratory Rate 18 18 Blood Pressure Blood Pressure [Le ft Arm] 129/72 120/66 Blood Pressure [Ri ght Upper Arm] Pulse Oximetry 90 90 Oxygen Delivery Me thod Room Air Oxygen Flow Rate DS: Data Data Completed and Pending Labs on day of discharge: Labs from last 24 hours 11/17/24 06:00 WBC 14.88 H RBC 4.40 Hgb 13.1 Hct 40.7 MCV 93 MCH 30 MCHC 32 RDW Coeff of Gilberto 13.0 Plt Count 300 Neut % (Auto) 77.3 H Lymph % (Auto) 15.5 L [place] % (Auto) 6.6 Eos % (Auto) 0.1 Baso % (Auto) 0.3 Neut # (Auto) 11.50 H Lymph # (Auto) 2.30 [place] # (Auto) 1.00 H Eos # (Auto) 0.00 Baso # (Auto) 0.00 Abs Immat Gran (auto) 0.00 Imm/Tot Granulo (auto) 0.2 Sodium 136 Potassium 4.4 Chloride 104 Carbon Dioxide 26 Anion Gap 6 L BUN 15 Creatinine 0.9 Estimated Creat Clear 45.20 Estimated GFR 69 Glucose 202 H Hemoglobin A1c 7.7 H Calcium 8.9 Total Bilirubin 0.8 Direct Bilirubin 0.1 AST 52 H ALT 30 Alkaline Phosphatase 70 Total Protein 6.6 Albumin 3.9 Preliminary micro results at discharge 11/16/24 13:15 Aerobic Culture - Preliminary Gallbladder Fluid Culture in Progress Anaerobic Culture - Preliminary Culture in Progress Discharge Plan Discharge Disposition: Home w/ Parent or Adult Discharging Surgeon: Flako Hassan Follow-Up Appointment: 2 weeks [facility] Prescriptions: New hydrocodone-acetaminophen 5-325 mg tablet 1 tab PO Q6H PRN (Reason: pain) Qty: 20 0RF Continued donepezil 5 mg tablet 5 mg PO HS albuterol sulfate 2.5 mg /3 mL (0.083 %) solution for nebulization 2.5 mg continuous nebulization Q4H PRN (Reason: wheezing) citalopram 20 mg tablet 20 mg PO DAILY fluticasone propion-salmeterol 500-50 mcg/dose blister with device 1 inh INHALATION BID metoprolol succinate 25 mg tablet extended release 24 hr 25 mg PO DAILY metformin 500 mg tablet extended release 24 hr 1,000 mg PO BID valsartan 40 mg tablet 40 mg PO DAILY rosuvastatin 40 mg tablet 40 mg PO HS insulin glargine [Lantus Solostar U-100 Insulin] 100 unit/mL (3 mL) insulin pen 23 unit subcut BID Ozempic 2 mg/dose (8 mg/3 mL) pen injector 2 mg subcut Q7D aspirin [Adult Aspirin Regimen] 81 mg tablet,delayed release (DR/EC) 81 mg PO DAILY Held clopidogrel 75 mg tablet 75 mg PO DAILY Hold Instructions: Resume on 11/21/24. Activity Level: No strenuous activity Activity Detail: No strenuous activity or lifting more than 15-20 lbs for 4-6 weeks. Take laxative such as MiraLax or senna daily for the first 7-10 days after surgery to prevent constipation. Patient should remove her surgical dressings tomorrow, Monday. She should leave Steri-Strips on for the next 10 days. Discharge Diet: Regular Patient Instructions: Sleep Apnea (DC), General Anesthesia (DC), Post-Operative Instructions: Laparoscopic Cholecystectomy Additional Instructions: Patient should make an appointment with Dr. Dunn at [facility] on Monday11/20/2024 for drain removal. Follow up in clinic with me in 2 weeks. Please teach drain cares. Follow-up: Flako Hassan MD [Staff Physician, General Surgery] Discharge Orders: Discharge Order (Routine); Ordered 11/17/24 Ordered By: Flako Hassan
--- NOTE | 2024-11-17 12:54 | PC.NURSE ---
The patient discharged home with her sister. All instructions were reviewed regarding post op teaching and S/S to look out for as sign of infection. MICHAEL drain is patent and draining serosanguineous fluid. Drain dressing is CDI. Phone numbers were given as well where to call if she has questions. [facility]
--- NOTE | 2024-11-17 15:23 | PM.IMPN1 ---
Assessment and Plan Assessment and plan (1) S/P laparoscopic cholecystectomy: Problem comment: Nu Hassan, 11/17/24. No complications. Status: Acute (2) Cholecystitis, acute: Problem comment: -status post laparoscopic cholecystectomy and laparoscopic lysis of adhesions 11/16/2024, Dr. Janae Hassan, with drain left in place -hospitalist service will follow with General surgery while patient is in the hospital Status: Acute (3) Acute cystitis: Problem comment: E coli, sensitivities reviewed. 2 g IV Rocephin given before discharge. Oral cefpodoxime prescribed for 4 days, 5 days total therapy Status: Acute (4) CAD, multiple vessel: Problem comment: Multi-vessel, 05/05/2021: -95% left circumflex lesion status post PCI with 3.0 x 24 mm synergy MAIRA; -90% mid RCA lesions status post PCI with 4.0 x 23 mm Xience Skypoint MAIRA; -95% 1st right ANDRE lesion status post PCI with 2.5 X 28 mm Xience Skypoint MAIRA. - will hold clopidogrel and aspirin until such time as patient's surgeon determined as we can restart Status: Acute (5) COPD mixed type: Problem comment: -continue to manage with usual supportive medications scheduled and p.r.n. Status: Acute (6) Type II diabetes mellitus: Problem comment: -has not taking any of her diabetes medications for nearly 36 hours by the time I see her and her fingerstick blood glucose is 258 -sliding scale fast acting insulin q.i.d. ACHS -her usual glargine insulin doses 23 units once daily. Will give 10 units tonight, then 10 units every morning starting tomorrow morning and adjust dose upward as warranted -restart metformin Status: Acute (7) HTN (hypertension): Problem comment: -given her elevated postop blood pressures will restart her antihypertensive medications already Status: Acute Subjective Date Seen: 11/17/24 Interval history: Daily Progress Note - Hospital Medicine Day #: 2 Post-op #1 CC: Pre-op diagnosis: 1. Acute cholecystitis. 2. s/p open gastric bypass. Post-op diagnosis: 1. Acute cholecystitis. 2. Multiple omental adhesions to the abdominal wall. 3. s/p open gastric bypass. Type of Procedure: 1. Laparoscopic cholecystectomy. 2. Laparoscopic lysis of adhesions. 24 HOUR UPDATE: Notable Labs, Micro, Rads, Interventions: Vital signs reviewed and are stable. CBC is unremarkable considering postop status. Chemistries reviewed and are unremarkable. Urine culture shows E coli at greater than 100,000 CFUs. Rocephin given while an inpatient. Sent home on Vantin 200 mg b.i.d. Objective: Awake, alert. Tolerating a normal diet. Vitals: see above Lungs: Clear. Cardiac: S1S2. Abdomen: Appropriately tender. Howard-Ferreira drain observed and draining. Exam Const: Vital Signs, click to edit/add: Vital Signs - 24 hr 11/16/24 15:35 11/16/24 15:40 11/16/24 15:45 Temperature 97.7 F Pulse Rate 62 63 61 Pulse Rate [Pulse Oximeter] Respiratory Rate 15 16 16 Blood Pressure 129/60 129/63 127/67 Blood Pressure [Le ft Arm] Pulse Oximetry 96 97 99 Oxygen Delivery Me thod OxyMask Oxygen Flow Rate 6 11/16/24 15:50 11/16/24 15:55 11/16/24 16:00 Temperature Pulse Rate 59 L 66 64 Pulse Rate [Pulse Oximeter] Respiratory Rate 16 17 16 Blood Pressure 132/66 127/65 135/73 Blood Pressure [Le ft Arm] Pulse Oximetry 99 94 96 Oxygen Delivery Me thod Room Air Oxygen Flow Rate 11/16/24 16:05 11/16/24 16:15 11/16/24 16:30 Temperature 97.4 F L 97.3 F L 97.4 F L Pulse Rate 61 61 62 Pulse Rate [Pulse Oximeter] Respiratory Rate 16 12 16 Blood Pressure 127/67 136/72 140/76 H Blood Pressure [Le ft Arm] Pulse Oximetry 95 92 90 Oxygen Delivery Me thod Room Air Room Air Room Air Oxygen Flow Rate 11/16/24 16:45 11/16/24 17:00 11/16/24 17:15 Temperature 97.5 F L 97.9 F Pulse Rate 61 65 63 Pulse Rate [Pulse Oximeter] Respiratory Rate 16 16 16 Blood Pressure 147/72 H 140/72 H 135/71 Blood Pressure [Le ft Arm] Pulse Oximetry 90 90 90 Oxygen Delivery Me thod Room Air Room Air Room Air Oxygen Flow Rate 11/16/24 17:30 11/16/24 17:45 11/16/24 18:00 Temperature 97.9 F 97.4 F L 97.9 F Pulse Rate 65 65 72 Pulse Rate [Pulse Oximeter] Respiratory Rate 16 16 16 Blood Pressure 147/74 H 152/78 H 155/69 H Blood Pressure [Le ft Arm] Pulse Oximetry 93 90 94 Oxygen Delivery Me thod Oxygen Flow Rate 11/16/24 18:30 11/16/24 19:00 11/16/24 23:00 Temperature 97.9 F 98.9 F Pulse Rate 72 81 Pulse Rate [Pulse Oximeter] Respiratory Rate 16 16 Blood Pressure 144/73 H 151/74 H Blood Pressure [Le ft Arm] Pulse Oximetry 93 90 96 Oxygen Delivery Me thod Nasal Cannula Nasal Cannula Room Air Oxygen Flow Rate 1 1 11/16/24 23:00 11/16/24 23:45 11/17/24 03:47 Temperature 98.6 F 98.6 F Pulse Rate Pulse Rate [Pulse Oximeter] 72 72 69 Respiratory Rate 16 18 18 Blood Pressure Blood Pressure [Le ft Arm] 143/74 H 129/72 Pulse Oximetry 91 90 Oxygen Delivery Me thod Room Air Oxygen Flow Rate 11/17/24 07:00 11/17/24 08:30 Temperature 98.6 F Pulse Rate Pulse Rate [Pulse Oximeter] 70 Respiratory Rate 18 Blood Pressure Blood Pressure [Le ft Arm] 120/66 Pulse Oximetry 95 90 Oxygen Delivery Me thod Room Air Room Air Oxygen Flow Rate Labs Labs: Laboratory Results - last 24 hr 11/17/24 06:00 WBC 14.88 H RBC 4.40 Hgb 13.1 Hct 40.7 MCV 93 MCH 30 MCHC 32 RDW Coeff of Gilberto 13.0 Plt Count 300 Neut % (Auto) 77.3 H Lymph % (Auto) 15.5 L [place] % (Auto) 6.6 Eos % (Auto) 0.1 Baso % (Auto) 0.3 Neut # (Auto) 11.50 H Lymph # (Auto) 2.30 [place] # (Auto) 1.00 H Eos # (Auto) 0.00 Baso # (Auto) 0.00 Abs Immat Gran (auto) 0.00 Imm/Tot Granulo (auto) 0.2 Sodium 136 Potassium 4.4 Chloride 104 Carbon Dioxide 26 Anion Gap 6 L BUN 15 Creatinine 0.9 Estimated Creat Clear 45.20 Estimated GFR 69 Glucose 202 H Hemoglobin A1c 7.7 H Calcium 8.9 Total Bilirubin 0.8 Direct Bilirubin 0.1 AST 52 H ALT 30 Alkaline Phosphatase 70 Total Protein 6.6 Albumin 3.9
== END 2024-11-17 12:50 | disposition home or self-care (01) ==
LOC: ED 10:01 → SS 10:20 → MEDSURG 11-17 08:26
PROVIDERS: Internal Medicine; Emergency Provider Family Medicine; PCP Student in an Organized Health Care Education/Training Program; Visit Provider Surgery
PROC: 0FT44ZZ Resection of Gallbladder, Percutaneous Endoscopic Approach (ICD-10-PCS; CPT 47562; principal; 2024-11-16 11:30)
DX: K80.00 Calculus of gallbladder with acute cholecystitis without obstruction (principal); K82.8 Other specified diseases of gallbladder; K66.0 Peritoneal adhesions (postprocedural) (postinfection); I12.9 Hypertensive chronic kidney disease with stage 1 through stage 4 chronic kidney disease, or unspecified chronic kidney disease; E11.22 Type 2 diabetes mellitus with diabetic chronic kidney disease; N18.31 Chronic kidney disease, stage 3a; E11.65 Type 2 diabetes mellitus with hyperglycemia; E11.3299 Type 2 diabetes mellitus with mild nonproliferative diabetic retinopathy without macular edema, unspecified eye; N30.00 Acute cystitis without hematuria; B96.20 Unspecified Escherichia coli [E. coli] as the cause of diseases classified elsewhere; J44.9 Chronic obstructive pulmonary disease, unspecified; G47.30 Sleep apnea, unspecified; Z98.84 Bariatric surgery status; I25.10 Atherosclerotic heart disease of native coronary artery without angina pectoris; M06.9 Rheumatoid arthritis, unspecified; E28.2 Polycystic ovarian syndrome; Z79.4 Long term (current) use of insulin; Z79.84 Long term (current) use of oral hypoglycemic drugs; Z79.85 Long-term (current) use of injectable non-insulin antidiabetic drugs; Z79.02 Long term (current) use of antithrombotics/antiplatelets; Z79.82 Long term (current) use of aspirin
CPT/HCPCS: 47562; 49329; 00790; 36415; 74176; 76705; 80048; 80076; 81001; 82962; 83036; 83690; 85025; 86140; 87070; 87075; 87086; 87186; 87205; 88304; 93005; 99100; 99140; 99284; 99285; A9270; J0330; J0665; J0696; J1100; J1815; J1885; J2371; J2405; J2543; J2704; J3475; J3490; J7030; J7120